=== PATIENT | female | born 1995 | race Hispanic/Latino ===

== ENCOUNTER → 2017-01-13 | Outpatient (CLI) | payer MEDICAID ==
[2017-01-13 14:39] LABS: CHLORIDE,CL 106 mmol/L (98-110); SODIUM,NA 141 mmol/L (136-146)
== END ==
LOC: MW.CHFP 14:04
PROVIDERS: ATTEND Physician Assistant
DX: R10.11 Right upper quadrant pain (principal)
CPT/HCPCS: 36415; 80053; 82150; 83690; 85025

== ENCOUNTER 2019-04-19 04:09 | Inpatient (IN) | payer OTHER ==
[2019-04-19] MEDS ORDERED: Nalbuphine 10 MG/1 ML Vial IVPUSH PRN (08:01)
[2019-04-19] MEDS ORDERED: Butorphanol 1 MG/ML SDV IVPUSH PRN (08:01)
[2019-04-19] MEDS ORDERED: Ondansetron 4 MG/2 ML SDV IVPUSH PRN (08:01)
[2019-04-19] MEDS ORDERED: Misoprostol 200 MCG Tab PO PRN (08:01)
[2019-04-19] MEDS ORDERED: Sodium Chloride 0.9% 10 ML Syringe FLUSH PRN (08:01)
[2019-04-19] MEDS ORDERED: Methylergonovine 0.2 MG/1 ML Amp IM PRN (08:01)
[2019-04-19] MEDS ORDERED: Tranexamic Acid 1,000 MG in Sodium Chloride 0.9% 100 ML IV PRN (08:01)
[2019-04-19] MEDS ORDERED: Lidocaine 1% 50 ML MDV INJECT PRN (08:01)
[2019-04-19] MEDS ORDERED: Water For Irrigation,Sterile 1,000 ML Container IRR PRN (08:01)
[2019-04-19] MEDS ORDERED: Carboprost Tromethamine 250 MCG/1 ML Amp IM PRN (08:01)
[2019-04-19] MEDS ORDERED: Sodium Chloride 0.9% 10 ML SDV IV PRN (08:01)
[2019-04-19] MEDS ORDERED: Sodium Chloride 0.9% 2.5 ML Syringe FLUSH PRN (08:01)
--- NOTE | 2019-04-19 08:09 | PCM.LDHP ---
L&D History of Present Illness - General Date of Service: 04/19/19 Admit Problem/Dx: Patient Status Order with Admit Dx/Problem 04/19/19 04:51 Patient Status [ADT] Routine 04/19/19 08:01 Patient Status [ADT] Routine Admission Diagnosis/Problem Admission Diagnosis/Problem Source of Information: Patient History Limitations: Reports: No Limitations - History of Present Illness Improves with: Reports: None Worsens with: Reports: None Associated Symptoms: Reports: N - Related Data Allergies/Adverse Reactions: Allergies Allergy/AdvReac Type Severity Reaction Status Date / Time No Known Allergies Allergy Verified 04/19/19 07:22 Home Medications: Home Meds . 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 EDC 04/14/2019 Neurological History: Reports: Migraines Psychiatric History: Reports: None Endocrine/Metabolic History: Reports: Diabetes, Gestational Hematologic History: Reports: None Immunologic History: Reports: None Oncologic (Cancer) History: Reports: None Dermatologic History: Reports: None - Infectious Disease History Infectious Disease History: Reports: Chicken Pox - Past Surgical History Musculoskeletal Surgical History: Reports: Other (See Below) Social & Family History - Family History Family Medical History: Noncontributory : Reports: Renal Calculus Neurological: Reports: CVA Endocrine/Metabolic: Reports: Diabetes, Type I, Diabetes, type II - Caffeine Use Caffeine Use: Reports: None H&P Review of Systems - Review of Systems: Review Of Systems: See Below General: Reports: No Symptoms HEENT: Reports: No Symptoms Pulmonary: Reports: No Symptoms Cardiovascular: Reports: No Symptoms Gastrointestinal: Reports: No Symptoms Genitourinary: Reports: No Symptoms Musculoskeletal: Reports: No Symptoms Skin: Reports: No Symptoms Psychiatric: Reports: No Symptoms Neurological: Reports: No Symptoms Hematologic/Lymphatic: Reports: No Symptoms Immunologic: Reports: No Symptoms L&D Exam - Exam Exam: See Below - Vital Signs Weight: 104.326 kg - OB Specific Contraction Intensity: Mild to Moderate Movement: Active Heart Tones: Present Presentation: Vertex - Hsieh Score Hsieh Score Cervix Position: Anterior Hsieh Score Consistency: Soft Hsieh Score Effacement: 51-70% Hsieh Score Dilation: 3-4 cm Hsieh Score Infant's Station: -3 Hsieh Score Total: 8 - Exam General: Alert, Oriented HEENT: PERRLA, Conjunctiva Clear, EACs Clear, EOMI, Hearing Intact, Mucosa Moist & [place], Nares Patent, Normal Nasal Septum, Posterior Pharynx Clear, TMs Clear Neck: Supple, Trachea Midline Lungs: Clear to Auscultation, Normal Respiratory Effort Cardiovascular: Regular Rate, Regular Rhythm GI/Abdominal Exam: Normal Bowel Sounds, Soft, Non-Tender, No Organomegaly, No Distention, No Abnormal Bruit, No Mass, Pelvis Stable Rectal Exam: Normal Exam, Normal Rectal Tone Genitourinary: Normal external exam, Normal bimanual exam, Normal speculum exam Back Exam: Normal Inspection, Full Range of Motion Extremities: Normal Inspection, Normal Range of Motion, Non-Tender, No Pedal Edema, Normal Capillary Refill Skin: Warm, Dry, Intact Neurological: Cranial Nerves Intact, Reflexes Equal Bilateral Psychiatric: Alert, Normal Affect, Normal Mood Problem List Initiated/Reviewed/Updated: Yes Orders Last 24hrs: Active Orders 24 hr Category Date Time Status Patient Status [ADT] Routine ADT 04/19/19 08:01 Active Heart Tones [RC] CONTINUOUS Care 04/19/19 08:01 Active Non Stress Test [RC] PER UNIT ROUTINE Care 04/19/19 04:51 Active Non Stress Test [RC] PER UNIT ROUTINE Care 04/19/19 08:01 Active May Shower [RC] ASDIRECTED Care 04/19/19 08:01 Active Notify Provider [RC] PRN Care 04/19/19 08:01 Active Up ad Addis [RC] ASDIRECTED Care 04/19/19 04:51 Active Vaginal Exam [RC] Click to Edit Care 04/19/19 04:51 Active Vital Signs [RC] PER UNIT ROUTINE Care 04/19/19 04:51 Active CBC W/O DIFF,HEMOGRAM [HEME] Routine Lab 04/19/19 08:01 Ordered TYPE AND SCREEN [BBK] Routine Lab 04/19/19 08:01 Ordered Butorphanol [Stadol] Med 04/19/19 08:01 Active 1 mg IVPUSH Q1H PRN Carboprost Tromethamine [Hemabate DS] Med 04/19/19 08:01 Active 250 mcg IM ASDIRECTED PRN Lactated Ringers [Ringers, Lactated] 1,000 ml Med 04/19/19 08:15 Ordered IV ASDIRECTED Lidocaine 1% [Xylocaine 1%] Med 04/19/19 08:01 Active 50 ml INJECT ONETIME PRN Methylergonovine [Methergine] Med 04/19/19 08:01 Active 0.2 mg IM ASDIRECTED PRN Nalbuphine [Nubain] Med 04/19/19 08:01 Ordered 10 mg IVPUSH Q1H PRN Ondansetron [Zofran] Med 04/19/19 08:01 Ordered 4 mg IVPUSH Q6H PRN Oxytocin/0.9 % Sodium Chloride [Oxytocin 30 Unit/500 ML Med 04/19/19 08:15 Ordered -NS] 30 unit in 500 ml IV TITRATE Sodium Chloride 0.9% [Normal Saline] Med 04/19/19 08:01 Ordered 10 ml IV ASDIRECTED PRN Sodium Chloride 0.9% [Saline Flush] Med 04/19/19 08:01 Ordered 10 ml FLUSH ASDIRECTED PRN Sodium Chloride 0.9% [Saline Flush] Med 04/19/19 08:01 Ordered 2.5 ml FLUSH ASDIRECTED PRN Tranexamic Acid [Cyklokapron] 1,000 mg Med 04/19/19 08:01 Active Sodium Chloride 0.9% [Normal Saline] 100 ml IV ONETIME Water For Irrigation,Sterile [Sterile Water for Med 04/19/19 08:01 Active Irrigation] 1,000 ml IRR ASDIRECTED PRN miSOPROStol [Cytotec] Med 04/19/19 08:01 Active 200 mcg PO ONETIME PRN Scalp Electrode [WOMSER] Per Unit Routine Oth 04/19/19 08:01 Ordered Peripheral IV Insertion Adult [OM.PC] Routine Oth 04/19/19 08:01 Ordered Resuscitation Status Routine Resus Stat 04/19/19 04:51 Ordered Medication Orders Butorphanol Tartrate (Stadol) 1 mg IVPUSH Q1H PRN PRN Reason: Pain Carboprost Tromethamine (Hemabate Ds) 250 mcg IM ASDIRECTED PRN PRN Reason: Post Hemorrhage Tranexamic Acid 1,000 mg/ (Sodium Chloride) 110 mls @ 660 mls/hr IV ONETIME PRN PRN Reason: Bleeding Lactated Ringer's (Ringers, Lactated) 1,000 mls @ 150 mls/hr IV ASDIRECTED [place] Oxytocin/Sodium Chloride (Oxytocin 30 Unit/500 Ml-Ns) 30 unit in 500 mls @ 999 mls/hr IV TITRATE [place] Lidocaine HCl (Xylocaine 1%) 50 ml INJECT ONETIME PRN PRN Reason: Laceration repair Methylergonovine Maleate (Methergine) 0.2 mg IM ASDIRECTED PRN PRN Reason: Post Hemorrhage Misoprostol (Cytotec) 200 mcg PO ONETIME PRN PRN Reason: Post Hemorrhage Nalbuphine HCl (Nubain) 10 mg IVPUSH Q1H PRN PRN Reason: Pain (severe 7-10) Ondansetron HCl (Zofran) 4 mg IVPUSH Q6H PRN PRN Reason: Nausea/Vomiting Sodium Chloride (Saline Flush) 10 ml FLUSH ASDIRECTED PRN PRN Reason: Keep Vein Open Sodium Chloride (Saline Flush) 2.5 ml FLUSH ASDIRECTED PRN PRN Reason: Keep Vein Open Sodium Chloride (Normal Saline) 10 ml IV ASDIRECTED PRN PRN Reason: IV Use Sterile Water (Sterile Water For Irrigation) 1,000 ml IRR ASDIRECTED PRN PRN Reason: delivery Assessment/Plan Comment:: Early labor admit. Expacting .
[2019-04-19] MEDS ORDERED: Lactated Ringers 1,000 ML IV SCH (08:15)
[2019-04-19] MEDS ORDERED: Oxytocin/0.9 % Sodium Chloride 30 UNIT/500 ML BAG IV SCH ×2 (08:15→10:45)
[2019-04-19] MEDS ORDERED: oxyCODONE 5 MG Tab PO PRN (14:06)
[2019-04-19] MEDS ORDERED: Ibuprofen 400 MG Tab PO PRN (14:06)
[2019-04-19] MEDS ORDERED: Benzocaine/Menthol 20%-0.5% Spray 78 GM Cannister TOP PRN (14:06)
[2019-04-19] MEDS ORDERED: Acetaminophen 500 MG Tab PO PRN ×2 (14:06)
[2019-04-19] MEDS ORDERED: Bisacodyl 10 MG Supp RECTAL PRN (14:06)
[2019-04-19] MEDS ORDERED: Lanolin 100% Cream 7 GM Tube TOP PRN (14:06)
[2019-04-19] MEDS ORDERED: Witch Hazel Medicated Pads 40/Jar TOP PRN (14:06)
[2019-04-19] MEDS ORDERED: Ibuprofen 800 MG Tab PO PRN (14:06)
[2019-04-19] MEDS ORDERED: Docusate Sodium 100 MG Cap PO PRN (14:06)
--- NOTE | 2019-04-19 19:45 | OR ---
SURGEON: Torin Davila MD DATE OF PROCEDURE: Ms. Arreguin is 23. She is para 2-0-0-2. She is term. She is followed in our clinic primarily by our nurse maintenance of way supervisor, Dawna Carrillo. She is admitted in active labor today early in the morning. At the time of admission, she was 4 cm, 70% vertex and -3. I did an artificial rupture of the membranes on the patient with a clear fluid. She started having regular contractions without any problem and then she later on required a low dose of Pitocin. The patient became complete, complete and she was able to accomplish normal spontaneous vaginal delivery. Female fetus, score reported to be 8 and 9. The placenta delivered spontaneous, complete, and intact without any problem. There was no need for episiotomy. There was no labial or perineal laceration. I was assisted in this delivery by our family planning resident, Camila Diego. ESTIMATED BLOOD LOSS: 250 to 300 mL. heart rate was category 1 through the entire process of labor. There was no complication in the labor process and the delivery. COLTON / CECILY /[id number]
[2019-04-20 08:36] VITALS: BP 122/78
--- NOTE | 2019-04-20 13:28 | PCM.DCSUM1 ---
Discharge Summary - Hospital Course Diagnosis: Stroke: No - Discharge Data Discharge Date: 04/20/19 Discharge Disposition: Home, Self-Care 01 Condition: Good - Patient Instructions Diet: Usual Diet as Tolerated Activity: As Tolerated Driving: Do Not Drive Showering/Bathing: May Shower Notify Provider of: Fever, Increased Pain, Nausea and/or Vomiting - Discharge Plan Home Medications: Home Meds . [No Known Home Meds] 10/20/15 [History] Referrals: [facility] [Outside] Torin Davila MD [Physician] - 05/31/19 8:30 am - Discharge Summary/Plan Comment DC Time >30 min.: Yes - General Info Date of Service: 04/20/19 Functional Status: Reports: Pain Controlled - Review of Systems General: Reports: No Symptoms HEENT: Reports: No Symptoms Pulmonary: Reports: No Symptoms Cardiovascular: Reports: No Symptoms Gastrointestinal: Reports: No Symptoms Genitourinary: Reports: No Symptoms Musculoskeletal: Reports: No Symptoms Skin: Reports: No Symptoms Neurological: Reports: No Symptoms Psychiatric: Reports: No Symptoms - Patient Data Vitals - Most Recent: Last Vital Signs Temp 36.1 C 04/20/19 08:34 Pulse 85 04/20/19 04:03 Resp 15 04/20/19 08:34 BP 122/78 04/20/19 08:34 Pulse Ox 97 04/20/19 08:34 Weight - Most Recent: 104.326 kg Lab Results - Last 24 hrs: Laboratory Results - last 24 hr 04/20/19 Range/Units 05:02 Hgb 10.1 L (12.0-16.0) g/dL Hct 32.5 L (36.0-46.0) % Med Orders - Current: Current Medications Acetaminophen (Tylenol Extra Strength) 500 mg PO Q4H PRN PRN Reason: Pain Acetaminophen (Tylenol Extra Strength) 1,000 mg PO Q4H PRN PRN Reason: Pain Benzocaine/Menthol (Dermoplast Pain Relief 20%-0.5% [place]) 78 gm TOP ASDIRECTED PRN PRN Reason: Perineal Comfort Measure Bisacodyl (Dulcolax) 10 mg RECTAL ONETIME PRN PRN Reason: Constipation Docusate Sodium (Colace) 100 mg PO BID PRN PRN Reason: Constipation Last Admin: 04/19/19 20:38 Dose: 100 mg Emollient Ointment (Lansinoh Hpa) 0 gm TOP ASDIRECTED PRN PRN Reason: Sore Nipples Ibuprofen (Motrin) 400 mg PO Q4H PRN PRN Reason: Pain Ibuprofen (Motrin) 800 mg PO Q6H PRN PRN Reason: Pain Oxycodone HCl (Oxycodone) 5 mg PO Q2H PRN PRN Reason: Pain Witch Ethel (Tucks) 1 pad TOP ASDIRECTED PRN PRN Reason: comfort care Discontinued Medications Butorphanol Tartrate (Stadol) 1 mg IVPUSH Q1H PRN PRN Reason: Pain Carboprost Tromethamine (Hemabate Ds) 250 mcg IM ASDIRECTED PRN PRN Reason: Post Hemorrhage Tranexamic Acid 1,000 mg/ (Sodium Chloride) 110 mls @ 660 mls/hr IV ONETIME PRN PRN Reason: Bleeding Lactated Ringer's (Ringers, Lactated) 1,000 mls @ 150 mls/hr IV ASDIRECTED CHAPARRITA Last Admin: 04/19/19 13:01 Dose: 150 mls/hr Oxytocin/Sodium Chloride (Oxytocin 30 Unit/500 Ml-Ns) 30 unit in 500 mls @ 999 mls/hr IV TITRATE [facility] Oxytocin/Sodium Chloride (Oxytocin 30 Unit/500 Ml-Ns) 30 unit in 500 mls @ 2 mls/hr IV TITRATE [facility]; Protocol Last Infusion: 04/19/19 14:01 Dose: 999 mls/hr Lidocaine HCl (Xylocaine 1%) 50 ml INJECT ONETIME PRN PRN Reason: Laceration repair Methylergonovine Maleate (Methergine) 0.2 mg IM ASDIRECTED PRN PRN Reason: Post Hemorrhage Misoprostol (Cytotec) 200 mcg PO ONETIME PRN PRN Reason: Post Hemorrhage Nalbuphine HCl (Nubain) 10 mg IVPUSH Q1H PRN PRN Reason: Pain (severe 7-10) Ondansetron HCl (Zofran) 4 mg IVPUSH Q6H PRN PRN Reason: Nausea/Vomiting Sodium Chloride (Saline Flush) 10 ml FLUSH ASDIRECTED PRN PRN Reason: Keep Vein Open Sodium Chloride (Saline Flush) 2.5 ml FLUSH ASDIRECTED PRN PRN Reason: Keep Vein Open Sodium Chloride (Normal Saline) 10 ml IV ASDIRECTED PRN PRN Reason: IV Use Sterile Water (Sterile Water For Irrigation) 1,000 ml IRR ASDIRECTED PRN PRN Reason: delivery - Exam General: Reports: Alert, Oriented HEENT: Reports: Pupils Equal, Pupils Reactive, EOMI, Mucous Membr. Moist/[place] Neck: Reports: Supple Lungs: Reports: Clear to Auscultation, Normal Respiratory Effort Cardiovascular: Reports: Regular Rate, Regular Rhythm GI/Abdominal Exam: Normal Bowel Sounds, Soft, Non-Tender, No Organomegaly, No Distention, No Abnormal Bruit, No Mass, Pelvis Stable (Female) Exam: Normal External Exam, Normal Speculum Exam, Normal Bimanual Exam Rectal (Female) Exam: Normal Exam, Normal Rectal Tone Back Exam: Reports: Normal Inspection, Full Range of Motion Extremities: Normal Inspection, Normal Range of Motion, Non-Tender, No Pedal Edema, Normal Capillary Refill Skin: Reports: Warm, Dry, Intact Wound/Incisions: Reports: Healing Well Neurological: Reports: No New Focal Deficit Psy/Mental Status: Reports: Alert, Normal Affect, Normal Mood
== END 2019-04-20 16:20 | disposition home or self-care (01) | DRG 807 ==
LOC: MW.OBCHECK 04:09 → MW.OB 04:12 → OBSVTOIN 14:07 → MW.OBCHECK 14:11 → MW.OB 19:22
PROVIDERS: ADMIT Obstetrics & Gynecology; ATTEND Obstetrics & Gynecology
PROC: 10E0XZZ Delivery of Products of Conception, External Approach (ICD-10-PCS; principal; 2019-04-19)
PROC: 10907ZC Drainage of Amniotic Fluid, Therapeutic from Products of Conception, Via Natural or Artificial Opening (ICD-10-PCS; 2019-04-19)
DX: O80 Encounter for full-term uncomplicated delivery (principal); Z37.0 Single live birth; Z3A.00 Weeks of gestation of pregnancy not specified
CPT/HCPCS: 36415; 59025; 59409; 85014; 85018; 85027; 86850; 86900; 86901; A9270-GY; J2590; J7120

== ENCOUNTER 2019-05-03 13:38 | Emergency (ER) | payer OTHER ==
[2019-05-03] MEDS ORDERED: Ketorolac 60 MG/2 ML SDV IM ONE (14:38)
--- NOTE | 2019-05-03 14:40 | EDM.PDOC ---
ED HPI GENERAL MEDICAL PROBLEM - General Chief Complaint: Abdominal Pain Stated Complaint: STOMACH PAIN Time Seen by Provider: 05/03/19 14:35 - History of Present Illness INITIAL COMMENTS - FREE TEXT/NARRATIVE: HISTORY AND PHYSICAL: History of present illness: Patient's 23-year-old female presents with a concern of biliary colic this states she's had several episodes of this including with her most recent she was evaluated for this diagnosed accordingly and was referred to general surgery for follow-up after her which she did not pursue. She states this is clearly after eating she denies associated fever chills nausea vomiting at this time. Review of systems: As per history of present illness and below otherwise all systems reviewed and negative. Past medical history: As per history of present illness and as reviewed below otherwise noncontributory. Surgical history: As per history of present illness and as reviewed below otherwise noncontributory. Social history: No reported history of drug or alcohol abuse. Family history: As per history of present illness and as reviewed below otherwise noncontributory. Physical exam: HEENT: Atraumatic, normocephalic, pupils reactive, negative for conjunctival pallor or scleral icterus, mucous membranes moist, throat clear, neck supple, nontender, trachea midline. Lungs: Clear to auscultation, breath sounds equal bilaterally, chest nontender. Heart: S1S2, regular, negative for clicks, rubs, or JVD. Abdomen: Soft, nondistended, tenderness to deep palpation right upper quadrant no rebound no guarding Negative for masses or hepatosplenomegaly. Negative for costovertebral tenderness. Pelvis: Stable nontender. Genitourinary: Deferred. Rectal: Deferred. Extremities: Atraumatic, negative for cords or calf pain. Neurovascular unremarkable. Neuro: Awake, alert, oriented. Cranial nerves II through XII unremarkable. Cerebellum unremarkable. Motor and sensory unremarkable throughout. Exam nonfocal. Diagnostics: CBC CMP hCG [employer]: Toradol 60 mg IM abdominal ultrasound Impression: #1 biliary colic #2 medical noncompliance Definitive disposition and diagnosis as appropriate pending reevaluation and review of above. Upper Abdomen Pain Score (Numeric/FACES): 8 - Related Data Allergies Allergy/AdvReac Type Severity Reaction Status Date / Time No Known Allergies Allergy Verified 05/03/19 14:02 Home Meds: Home Meds . 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 EDC 04/14/2019 Musculoskeletal History: Reports: None Neurological History: Reports: Migraines Psychiatric History: Reports: None Endocrine/Metabolic History: Reports: Diabetes, Gestational Hematologic History: Reports: None Immunologic History: Reports: None Oncologic (Cancer) History: Reports: None Dermatologic History: Reports: None - Infectious Disease History Infectious Disease History: Reports: Chicken Pox - Past Surgical History Head Surgeries/Procedures: Reports: None GI Surgical History: Reports: None Musculoskeletal Surgical History: Reports: Other (See Below) Other Musculoskeletal Surgeries/Procedures:: cyst removal on left leg Social & Family History - Family History Family Medical History: Noncontributory : Reports: Renal Calculus OBGYN: Reports: Neurological: Reports: CVA Endocrine/Metabolic: Reports: Diabetes, Type I, Diabetes, type II - Tobacco Use Smoking Status *Q: Former Smoker Used Tobacco, but Quit: Yes Month/Year Tobacco Last Used: 2017 - Caffeine Use Caffeine Use: Reports: Tea - Recreational Drug Use Recreational Drug Use: No ED ROS GENERAL - Review of Systems Review Of Systems: ROS reveals no pertinent complaints other than HPI. ED EXAM, GENERAL - Physical Exam Exam: See Below (See dictation) Course - Vital Signs Last Recorded V/S: Last Vital Signs Temp 36.2 C 05/03/19 16:10 Pulse 77 05/03/19 16:10 Resp 20 05/03/19 16:10 BP 125/93 H 05/03/19 16:10 Pulse Ox 99 05/03/19 16:10 - Orders/Labs/Meds Labs: Laboratory Tests 05/03/19 05/03/19 05/03/19 Range/Units 14:40 14:50 14:50 WBC 10.09 (4.0-11.0) K/uL RBC 5.17 (4.30-5.90) M/uL Hgb 12.7 (12.0-16.0) g/dL Hct 41.0 (36.0-46.0) % MCV 79.3 L (80.0-98.0) fL MCH 24.6 L (27.0-32.0) pg MCHC 31.0 (31.0-37.0) g/dL RDW Std Deviation 45.0 (28.0-62.0) fl RDW Coeff of Donita 16 H (11.0-15.0) % Plt Count 381 (150-400) K/uL MPV 8.60 (7.40-12.00) fL Neut % (Auto) 60.0 (48.0-80.0) % Lymph % (Auto) 33.2 (16.0-40.0) % [place] % (Auto) 5.4 (0.0-15.0) % Eos % (Auto) 0.9 (0.0-7.0) % Baso % (Auto) 0.5 (0.0-1.5) % Neut # (Auto) 6.1 H (1.4-5.7) K/uL Lymph # (Auto) 3.4 H (0.6-2.4) K/uL [place] # (Auto) 0.5 (0.0-0.8) K/uL Eos # (Auto) 0.1 (0.0-0.7) K/uL Baso # (Auto) 0.1 (0.0-0.1) K/uL Nucleated RBC % 0.0 /100WBC Nucleated RBCs # 0 K/uL Sodium 142 (136-145) mmol/L Potassium 3.8 (3.5-5.1) mmol/L Chloride 104 (98-107) mmol/L Carbon Dioxide 28.3 (21.0-32.0) mmol/L BUN 11 (7.0-18.0) mg/dL Creatinine 0.9 (0.6-1.0) mg/dL Est Cr Clr Drug Dosing 90.23 mL/min Estimated GFR (MDRD) > 60.0 ml/min Glucose 96 (74-106) mg/dL Calcium 8.8 (8.5-10.1) mg/dL Total Bilirubin 0.6 (0.2-1.0) mg/dL AST 45 H (15-37) IU/L ALT 75 H (14-63) IU/L Alkaline Phosphatase 156 H (46-116) U/L Total Protein 8.2 (6.4-8.2) g/dL Albumin 3.4 (3.4-5.0) g/dL Globulin 4.8 H (2.6-4.0) g/dL Albumin/Globulin Ratio 0.7 L (0.9-1.6) HCG, Qual (NEG) Urine Color YELLOW Urine Appearance SLT CLOUDY Urine pH 6.0 (5.0-8.0) Ur Specific [place] 1.010 (1.001-1.035) Urine Protein NEGATIVE (NEGATIVE) mg/dL Urine Glucose (UA) NEGATIVE (NEGATIVE) mg/dL Urine Ketones NEGATIVE (NEGATIVE) mg/dL Urine Occult Blood MODERATE H (NEGATIVE) Urine Nitrite NEGATIVE (NEGATIVE) Urine Bilirubin NEGATIVE (NEGATIVE) Urine Urobilinogen 0.2 (<2.0) EU/dL Ur Leukocyte Esterase NEGATIVE (NEGATIVE) Urine RBC 2-5 (0-2/HPF) Urine WBC 0-2 (0-5/HPF) Ur Epithelial Cells FEW (NONE-FEW) Urine Bacteria RARE (NEGATIVE) Urine Mucus LIGHT (NONE-MOD) 05/03/19 Range/Units 14:50 WBC (4.0-11.0) K/uL RBC (4.30-5.90) M/uL Hgb (12.0-16.0) g/dL Hct (36.0-46.0) % MCV (80.0-98.0) fL MCH (27.0-32.0) pg MCHC (31.0-37.0) g/dL RDW Std Deviation (28.0-62.0) fl RDW Coeff of Donita (11.0-15.0) % Plt Count (150-400) K/uL MPV (7.40-12.00) fL Neut % (Auto) (48.0-80.0) % Lymph % (Auto) (16.0-40.0) % [place] % (Auto) (0.0-15.0) % Eos % (Auto) (0.0-7.0) % Baso % (Auto) (0.0-1.5) % Neut # (Auto) (1.4-5.7) K/uL Lymph # (Auto) (0.6-2.4) K/uL [place] # (Auto) (0.0-0.8) K/uL Eos # (Auto) (0.0-0.7) K/uL Baso # (Auto) (0.0-0.1) K/uL Nucleated RBC % /100WBC Nucleated RBCs # K/uL Sodium (136-145) mmol/L Potassium (3.5-5.1) mmol/L Chloride (98-107) mmol/L Carbon Dioxide (21.0-32.0) mmol/L BUN (7.0-18.0) mg/dL Creatinine (0.6-1.0) mg/dL Est Cr Clr Drug Dosing mL/min Estimated GFR (MDRD) ml/min Glucose (74-106) mg/dL Calcium (8.5-10.1) mg/dL Total Bilirubin (0.2-1.0) mg/dL AST (15-37) IU/L ALT (14-63) IU/L Alkaline Phosphatase (46-116) U/L Total Protein (6.4-8.2) g/dL Albumin (3.4-5.0) g/dL Globulin (2.6-4.0) g/dL Albumin/Globulin Ratio (0.9-1.6) HCG, Qual NEGATIVE (NEG) Urine Color Urine Appearance Urine pH (5.0-8.0) Ur Specific [place] (1.001-1.035) Urine Protein (NEGATIVE) mg/dL Urine Glucose (UA) (NEGATIVE) mg/dL Urine Ketones (NEGATIVE) mg/dL Urine Occult Blood (NEGATIVE) Urine Nitrite (NEGATIVE) Urine Bilirubin (NEGATIVE) Urine Urobilinogen (<2.0) EU/dL Ur Leukocyte Esterase (NEGATIVE) Urine RBC (0-2/HPF) Urine WBC (0-5/HPF) Ur Epithelial Cells (NONE-FEW) Urine Bacteria (NEGATIVE) Urine Mucus (NONE-MOD) Meds: Medications Discontinued Medications Generic Name Dose Route Start Last Admin Trade Name Freq PRN Reason Stop Dose Admin Ketorolac Tromethamine 60 mg 05/03/19 14:38 05/03/19 14:54 Toradol IM 05/03/19 14:39 60 mg ONETIME ONE Administration Departure - Departure Time of Disposition: 07:23 Disposition: Home, Self-Care 01 Condition: Good Clinical Impression: Abdominal pain - Discharge Information Instructions: Biliary Colic, Adult Referrals: PCP,Unknown [Primary Care Provider] - Forms: ED Department Discharge Additional Instructions: The following information is given to patients seen in the emergency department who are being discharged to home. This information is to outline your options for follow-up care. We provide all patients seen in our emergency department with a follow-up referral. The need for follow-up, as well as the timing and circumstances, are variable depending upon the specifics of your emergency department visit. If you don't have a primary care physician on staff, we will provide you with a referral. We always advise you to contact your personal physician following an emergency department visit to inform them of the circumstance of the visit and for follow-up with them and/or the need for any referrals to a consulting specialist. The emergency department will also refer you to a specialist when appropriate. This referral assures that you have the opportunity for follow-up care with a specialist. All of these measure are taken in an effort to provide you with optimal care, which includes your follow-up. Under all circumstances we always encourage you to contact your private physician who remains a resource for coordinating your care. When calling for follow-up care, please make the office aware that this follow-up is from your recent emergency room visit. If for any reason you are refused follow-up, please contact the [facility] at and asked to speak to the emergency department charge nurse. [facility] [address] [place] [id number] [address] 1. Tylenol and/or ibuprofen as needed for pain management. 2. Monitor your diet as this can cause increased pain if you consume large amounts of high fat 3. Follow-up with the general surgeon for further evaluation and management of gallbladder as we discussed. 4. Return to the ED as needed and as discussed.
[2019-05-03 15:21] LABS: CHLORIDE,CL 104 mmol/L (98-107); SODIUM,NA 142 mmol/L (136-145)
--- NOTE | 2019-05-03 15:37 | US ---
EXAMINATION: Right upper quadrant ultrasound HISTORY: Pain COMPARISON: 02/15/2016 TECHNIQUE: Grayscale and color Doppler imaging obtained. FINDINGS: The visualized pancreas is normal. The liver is normal contour and echotexture without a focal hepatic mass. Cholelithiasis is noted without pericholecystic fluid or gallbladder wall thickening. Common bile duct is moderately prominent at 1 cm. Right kidney measures at least 12.6 cm [id number] without evidence of hydronephrosis. IMPRESSION: 1. Cholelithiasis without secondary signs of cholecystitis. 2. Common bile duct is dilated to 1 cm, no filling defect is noted however the inferior duct is not characterized.
[2019-05-03 16:12] VITALS: BP 125/93
== END 2019-05-03 16:10 | disposition home or self-care (01) ==
LOC: MW.ED 13:38
DX: K80.70 Calculus of gallbladder and bile duct without cholecystitis without obstruction (principal); Z91.14 Patient's other noncompliance with medication regimen; Z87.891 Personal history of nicotine dependence
CPT/HCPCS: 36415; 76705; 80053; 81001; 84703; 85025; 96372; 99284; J1885

== ENCOUNTER 2019-05-16 14:20 | Emergency (ER) | payer MEDICAID, OTHER, SELFPAY ==
--- NOTE | 2019-05-16 14:25 | EDM.PDOC ---
ED HPI GENERAL MEDICAL PROBLEM - General Stated Complaint: ABD PAIN Time Seen by Provider: 05/16/19 14:25 Source of Information: Reports: Patient History Limitations: Reports: No Limitations - History of Present Illness INITIAL COMMENTS - FREE TEXT/NARRATIVE: HISTORY AND PHYSICAL: History of present illness: Patient is a 23-year-old female who presents to the emergency room with complaints of gallbladder pain. She previously had been diagnosed with gallstones and does have an appointment tomorrow with the general surgeon, Dr Sanchez. She has been previously taking Hollister for pain management, ran out this morning. She states her pain is not managed and is concerned she "can't make it until tomorrow". She does have mild nausea associated with this. Patient denies any fever, chills, headache, change in vision, syncope or near syncope. Denies any chest pain, back pain, shortness of breath or cough. Denies any vomiting, diarrhea, constipation or dysuria. Has not noted any blood in urine or stool. Patient has been eating and drinking appropriately. Review of systems: As per history of present illness and below otherwise all systems reviewed and negative. Past medical history: As per history of present illness and as reviewed below otherwise noncontributory. Surgical history: As per history of present illness and as reviewed below otherwise noncontributory. Social history: See social history for further information Family history: As per history of present illness and as reviewed below otherwise noncontributory. Physical exam: General: Well developed and well nourished 23-year-old female. Alert and oriented. Nontoxic appearing and in no acute distress. HEENT: Atraumatic, normocephalic, pupils equal and reactive bilaterally, negative for conjunctival pallor or scleral icterus, mucous membranes moist, TMs normal bilaterally, throat clear, neck supple, nontender, trachea midline. No drooling or trismus noted. No meningeal signs. No hot potato voice noted. Lungs: Clear to auscultation, breath sounds equal bilaterally, chest nontender. Heart: S1S2, regular rate and rhythm without overt murmur Abdomen: Soft, nondistended, right upper quadrant tenderness. Negative for masses or hepatosplenomegaly. Negative for costovertebral tenderness. Skin: Intact, warm, dry. No lesions or rashes noted. Extremities: Atraumatic, moves all extremities per self without difficulty or deficits, negative for cords or calf pain. Neurovascular unremarkable. Neuro: Awake, alert, oriented. Cranial nerves II through XII unremarkable. Cerebellum unremarkable. Motor and sensory unremarkable throughout. Exam nonfocal. Notes: Lab work is unremarkable. She does have an appointment tomorrow with the general surgeon. Supportive care measures were reviewed and discussed. Voices understanding and is agreeable to plan of care. Denies any further questions or concerns at this time. Diagnostics: CBC, CMP, lipase Therapeutics: Zofran ODT, Hollister Prescription: Tramadol (#15) Zofran (#10) Impression: Encounter for medication refill History of gallstones Plan: 1. Take the medications as prescribed. 2. Winthrop diet, increase her fluids 3. Keep your appointment with the general surgeon that you have for tomorrow. Return to the ED as needed and as discussed. Definitive disposition and diagnosis as appropriate pending reevaluation and review of above. abdomen Pain Score (Numeric/FACES): 10 - Related Data Allergies Allergy/AdvReac Type Severity Reaction Status Date / Time No Known Allergies Allergy Verified 05/03/19 14:02 Home Meds: Home Meds . 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 EDC 04/14/2019 Musculoskeletal History: Reports: None Neurological History: Reports: Migraines Psychiatric History: Reports: None Endocrine/Metabolic History: Reports: Diabetes, Gestational Hematologic History: Reports: None Immunologic History: Reports: None Oncologic (Cancer) History: Reports: None Dermatologic History: Reports: None - Infectious Disease History Infectious Disease History: Reports: Chicken Pox - Past Surgical History Head Surgeries/Procedures: Reports: None GI Surgical History: Reports: None Musculoskeletal Surgical History: Reports: Other (See Below) Other Musculoskeletal Surgeries/Procedures:: cyst removal on left leg Social & Family History - Family History Family Medical History: Noncontributory : Reports: Renal Calculus OBGYN: Reports: Neurological: Reports: CVA Endocrine/Metabolic: Reports: Diabetes, Type I, Diabetes, type II - Caffeine Use Caffeine Use: Reports: Tea ED ROS GENERAL - Review of Systems Review Of Systems: ROS reveals no pertinent complaints other than HPI. ED EXAM, GI/ABD - Physical Exam Exam: See Below (See dictation) Course - Vital Signs Last Recorded V/S: Last Vital Signs Temp 96.3 F 05/16/19 14:27 Pulse 84 05/16/19 14:27 Resp 20 05/16/19 14:27 BP 146/97 H 05/16/19 14:27 Pulse Ox 99 05/16/19 14:27 - Orders/Labs/Meds Labs: Laboratory Tests 05/16/19 05/16/19 Range/Units 14:41 14:41 WBC 9.92 (4.0-11.0) K/uL RBC 5.60 (4.30-5.90) M/uL Hgb 13.8 (12.0-16.0) g/dL Hct 43.8 (36.0-46.0) % MCV 78.2 L (80.0-98.0) fL MCH 24.6 L (27.0-32.0) pg MCHC 31.5 (31.0-37.0) g/dL RDW Std Deviation 44.1 (28.0-62.0) fl RDW Coeff of Donita 15 (11.0-15.0) % Plt Count 404 H (150-400) K/uL MPV 8.90 (7.40-12.00) fL Neut % (Auto) 52.8 (48.0-80.0) % Lymph % (Auto) 40.4 H (16.0-40.0) % [place] % (Auto) 5.9 (0.0-15.0) % Eos % (Auto) 0.7 (0.0-7.0) % Baso % (Auto) 0.2 (0.0-1.5) % Neut # (Auto) 5.2 (1.4-5.7) K/uL Lymph # (Auto) 4.0 H (0.6-2.4) K/uL Gordon # (Auto) 0.6 (0.0-0.8) K/uL Eos # (Auto) 0.1 (0.0-0.7) K/uL Baso # (Auto) 0.0 (0.0-0.1) K/uL Nucleated RBC % 0.0 /100WBC Nucleated RBCs # 0 K/uL Sodium 140 (136-145) mmol/L Potassium 3.3 L (3.5-5.1) mmol/L Chloride 100 (98-107) mmol/L Carbon Dioxide 26.1 (21.0-32.0) mmol/L BUN 17 (7.0-18.0) mg/dL Creatinine 1.2 H (0.6-1.0) mg/dL Est Cr Clr Drug Dosing 67.67 mL/min Estimated GFR (MDRD) 55.2 ml/min Glucose 101 (74-106) mg/dL Calcium 9.7 (8.5-10.1) mg/dL Total Bilirubin 0.8 (0.2-1.0) mg/dL AST 34 (15-37) IU/L ALT 66 H (14-63) IU/L Alkaline Phosphatase 225 H (46-116) U/L Total Protein 9.1 H (6.4-8.2) g/dL Albumin 4.3 (3.4-5.0) g/dL Globulin 4.8 H (2.6-4.0) g/dL Albumin/Globulin Ratio 0.9 (0.9-1.6) Lipase 147 (73-393) U/L Meds: Medications Discontinued Medications Generic Name Dose Route Start Last Admin Trade Name Freq PRN Reason Stop Dose Admin Hydrocodone Bitart/Acetaminophen 1 tab 05/16/19 14:38 05/16/19 14:46 Hollister 325-5 Mg PO 05/16/19 14:39 1 tab ONETIME ONE Administration Ondansetron HCl 4 mg 05/16/19 14:37 05/16/19 14:46 Zofran Odt PO 05/16/19 14:38 4 mg ONETIME ONE Administration Departure - Departure Time of Disposition: 14:49 Disposition: Home, Self-Care 01 Clinical Impression: Encounter for medication refill, History of gallstones - Discharge Information Instructions: Pain Medicine Instructions, [id number] Referrals: PCP,None [Primary Care Provider] - Additional Instructions: The following information is given to patients seen in the emergency department who are being discharged to home. This information is to outline your options for follow-up care. We provide all patients seen in our emergency department with a follow-up referral. The need for follow-up, as well as the timing and circumstances, are variable depending upon the specifics of your emergency department visit. If you don't have a primary care physician on staff, we will provide you with a referral. We always advise you to contact your personal physician following an emergency department visit to inform them of the circumstance of the visit and for follow-up with them and/or the need for any referrals to a consulting specialist. The emergency department will also refer you to a specialist when appropriate. This referral assures that you have the opportunity for follow-up care with a specialist. All of these measure are taken in an effort to provide you with optimal care, which includes your follow-up. Under all circumstances we always encourage you to contact your private physician who remains a resource for coordinating your care. When calling for follow-up care, please make the office aware that this follow-up is from your recent emergency room visit. If for any reason you are refused follow-up, please contact the [facility] Emergency Department at and asked to speak to the emergency department charge nurse. [facility] - General Surgery Professional Building [address] [place] [address], [address] [place] [address] 1. Take the medications as prescribed. 2. [place] diet, increase her fluids 3. Keep your appointment with the general surgeon that you have for tomorrow. Return to the ED as needed and as discussed.
[2019-05-16] MEDS ORDERED: Ondansetron 4 MG Tab.DIS PO ONE (14:37)
[2019-05-16] MEDS ORDERED: Acetaminophen/HYDROcodone 325-5 MG Tab PO ONE (14:38)
[2019-05-16 15:09] LABS: CARBON DIOXIDE,CO2 26.1 mmol/L (21.0-32.0); POTASSIUM,K 3.3 mmol/L (3.5-5.1)
[2019-05-16 15:30] VITALS: BP 107/89; PULSE 73
== END 2019-05-16 15:25 | disposition home or self-care (01) ==
LOC: MW.ED 14:20
DX: Z76.0 Encounter for issue of repeat prescription (principal); Z87.19 Personal history of other diseases of the digestive system
CPT/HCPCS: 36415; 80053; 83690; 85025; 99282; A9270

== ENCOUNTER 2019-05-17 15:26 | Inpatient (IN) | payer MEDICAID, OTHER, SELFPAY ==
--- NOTE | 2019-05-17 15:59 | US ---
INDICATION: Right upper quadrant pain TECHNIQUE: Ultrasound abdomen limited. Sonographic images of the right upper quadrant were obtained using sherman-scale and color Doppler images. COMPARISON: 02/15/2016 FINDINGS: Liver: Normal in size and echotexture. No masses. No intrahepatic biliary dilatation. Gallbladder: Multiple gallstones. Normal wall thickness. No pericholecystic fluid. Common bile duct: 2 mm. Pancreas: Normal. Right kidney: 12.5 cm. Normal echotexture and cortex. No masses, stones, or hydronephrosis. IMPRESSION: Multiple gallstones in an otherwise normal appearing gallbladder. Normal common bile duct. Dictated by Juan Barriga MD @ 05/17/2019 3:57:27 PM Dictated by: Juan Barriga MD @ 05/17/2019 15:57:31 (Electronically Signed)
[2019-05-17 16:31] LABS: CARBON DIOXIDE,CO2 29.2 mmol/L (21.0-32.0); POTASSIUM,K 3.3 mmol/L (3.5-5.1)
[2019-05-17] MEDS ORDERED: Acetaminophen/HYDROcodone 325-5 MG Tab PO PRN (16:49)
[2019-05-17] MEDS ORDERED: Ondansetron 4 MG/2 ML SDV IVPUSH PRN (16:49)
[2019-05-17] MEDS ORDERED: Acetaminophen 325 MG Tab PO PRN (16:49)
[2019-05-17] MEDS ORDERED: Ondansetron 4 MG Tab.DIS PO PRN (16:49)
[2019-05-17] MEDS ORDERED: Morphine 2 MG/ML Syringe IVPUSH PRN (16:49)
[2019-05-17] MEDS ORDERED: Sodium Chloride 0.9% 1,000 ML IV SCH (17:00)
--- NOTE | 2019-05-17 17:00 | PCM.HP ---
H&P History of Present Illness - General Date of Service: 05/17/19 Admit Problem/Dx: Admission Diagnosis/Problem Admission Diagnosis/Problem Cholelithiasis - History of Present Illness Initial Comments - Free Text/Narative: Patient is a 23-year-old female who was directly admitted from her PCP's office for abdominal pain secondary to gallstones. Patient reports having pain after eating solid foods for the past 2 weeks. She went to the ER approximately 2 weeks ago and had an ultrasound done which revealed gallstones. She was given pain medication and discharged. She has had persistent abdominal pain after eating and now has the pain after eating either solids or liquids. At her PCP's office this morning, a second ultrasound was done which showed multiple gallstones and she was then directly admitted to [facility] for further evaluation. Patient reports pain that initially begins in the epigastric area and then moves to the RUQ and then around her right flank. The pain is also sometimes felt in the LUQ. The pain will last several hours after eating and she also experiences nausea and vomiting. She has had some chills but denies any fevers. Patient has a PMH of gestational diabetes mellitus and recently gave via vaginal delivery 3 weeks ago. Bilateral Abdomen Pain Score (Numeric/FACES): 0 - Related Data Allergies/Adverse Reactions: Allergies Allergy/AdvReac Type Severity Reaction Status Date / Time No Known Allergies Allergy Verified 05/03/19 14:02 Home Medications: Home Meds . 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 EDC 04/14/2019 Musculoskeletal History: Reports: None Neurological History: Reports: Migraines Psychiatric History: Reports: None Endocrine/Metabolic History: Reports: Diabetes, Gestational, Other (See Below) Other Endocrine/Metabolic History: Patient stated she has no more gestational diabetes Hematologic History: Reports: None Immunologic History: Reports: None Oncologic (Cancer) History: Reports: None Dermatologic History: Reports: None - Infectious Disease History Infectious Disease History: Reports: Chicken Pox - Past Surgical History Head Surgeries/Procedures: Reports: None Cardiovascular Surgical History: Reports: None Respiratory Surgical History: Reports: None GI Surgical History: Reports: None Endocrine Surgical History: Reports: None Musculoskeletal Surgical History: Reports: Other (See Below) Other Musculoskeletal Surgeries/Procedures:: cyst removal on left leg Oncologic Surgical History: Reports: None Social & Family History - Family History Family Medical History: Noncontributory : Reports: Renal Calculus OBGYN: Reports: Neurological: Reports: CVA Endocrine/Metabolic: Reports: Diabetes, Type I, Diabetes, type II - Tobacco Use Smoking Status *Q: Former Smoker Years of Tobacco use: 3 Used Tobacco, but Quit: No - Caffeine Use Caffeine Use: Reports: Tea - Recreational Drug Use Recreational Drug Use: No H&P Review of Systems - Review of Systems: Review Of Systems: ROS reveals no pertinent complaints other than HPI. Exam - Exam Exam: See Below - Vital Signs Weight: 203 lb - Exam General: Alert, Oriented, Cooperative (no acute distress) HEENT: Conjunctiva Clear, EOMI, Hearing Intact, Posterior Pharynx Clear, Pupils Equal Neck: Supple, Trachea Midline Lungs: Clear to Auscultation, Normal Respiratory Effort Cardiovascular: Regular Rate, Regular Rhythm GI/Abdominal Exam: Other (bowel sounds present, soft, mild tenderness on deep palpation of RUQ. Barr's sign negative.) Extremities: Normal Inspection, Normal Range of Motion, Non-Tender, No Pedal Edema Peripheral Pulses: 2+: Radial (L), Radial (R), Posterior Tibial (L), Posterior Tibial (R) Skin: Warm, Dry, Intact Neurological: Cranial Nerves Intact, Strength Equal Bilateral, Normal Speech, Normal Tone Neuro Extensive - Mental Status: Alert, Oriented x3, Normal Mood/Affect Psychiatric: Alert, Normal Affect, Normal Mood - Patient Data Lab Results Last 24 hrs: Laboratory Results - last 24 hr 05/17/19 05/17/19 Range/Units 15:53 15:53 WBC 9.55 (4.0-11.0) K/uL RBC 5.43 (4.30-5.90) M/uL Hgb 13.5 (12.0-16.0) g/dL Hct 43.0 (36.0-46.0) % MCV 79.2 L (80.0-98.0) fL MCH 24.9 L (27.0-32.0) pg MCHC 31.4 (31.0-37.0) g/dL RDW Std Deviation 44.7 (28.0-62.0) fl RDW Coeff of Donita 15 (11.0-15.0) % Plt Count 430 H (150-400) K/uL MPV 9.00 (7.40-12.00) fL Neut % (Auto) 56.9 (48.0-80.0) % Lymph % (Auto) 37.0 (16.0-40.0) % [place] % (Auto) 4.8 (0.0-15.0) % Eos % (Auto) 0.9 (0.0-7.0) % Baso % (Auto) 0.4 (0.0-1.5) % Neut # (Auto) 5.4 (1.4-5.7) K/uL Lymph # (Auto) 3.5 H (0.6-2.4) K/uL [place] # (Auto) 0.5 (0.0-0.8) K/uL Eos # (Auto) 0.1 (0.0-0.7) K/uL Baso # (Auto) 0.0 (0.0-0.1) K/uL Nucleated RBC % 0.0 /100WBC Nucleated RBCs # 0 K/uL Sodium 139 (136-145) mmol/L Potassium 3.3 L (3.5-5.1) mmol/L Chloride 100 (98-107) mmol/L Carbon Dioxide 29.2 (21.0-32.0) mmol/L BUN 14 (7.0-18.0) mg/dL Creatinine 1.2 H (0.6-1.0) mg/dL Est Cr Clr Drug Dosing 67.67 mL/min Estimated GFR (MDRD) 55.2 ml/min Glucose 94 (74-106) mg/dL Calcium 9.7 (8.5-10.1) mg/dL Total Bilirubin 0.5 (0.2-1.0) mg/dL AST 25 (15-37) IU/L ALT 60 (14-63) IU/L Alkaline Phosphatase 200 H (46-116) U/L Total Protein 9.2 H (6.4-8.2) g/dL Albumin 4.3 (3.4-5.0) g/dL Globulin 4.9 H (2.6-4.0) g/dL Albumin/Globulin Ratio 0.9 (0.9-1.6) Amylase 45 (25-115) U/L Lipase 83 (73-393) U/L Result Diagrams: 05/17/19 15:53 05/17/19 15:53 Problem List Initiated/Reviewed/Updated: Yes Orders Last 24hrs: Active Orders 24 hr Category Date Time Status Patient Status [ADT] Routine ADT 05/17/19 16:49 Ordered Antiembolic Devices [RC] PER UNIT ROUTINE Care 05/17/19 16:54 Ordered Oxygen Therapy [RC] PRN Care 05/17/19 16:49 Ordered Up ad Addis [RC] ASDIRECTED Care 05/17/19 16:49 Ordered VTE/DVT Education [RC] PER UNIT ROUTINE Care 05/17/19 16:49 Ordered Vital Signs [RC] Q4H Care 05/17/19 16:49 Ordered Regular Diet [DIET] Diet 05/17/19 Dinner Ordered Acetaminophen [Tylenol] Med 05/17/19 16:49 Ordered 650 mg PO Q4H PRN Acetaminophen/HYDROcodone [Cromwell 325-5 MG] Med 05/17/19 16:49 Ordered 1 tab PO Q4H PRN Morphine Med 05/17/19 16:49 Ordered 2 mg IVPUSH Q2H PRN Ondansetron [Zofran ODT] Med 05/17/19 16:49 Ordered 4 mg PO Q4H PRN Ondansetron [Zofran] Med 05/17/19 16:49 Ordered 4 mg IVPUSH Q4H PRN Sodium Chloride 0.9% @ 125 MLS/HR (1000ml) Med 05/17/19 17:00 Ordered Sodium Chloride 0.9% [Normal Saline] 1,000 ml IV ASDIRECTED Sequential Compression Device [OM.PC] Per Unit Routine Oth 05/17/19 16:52 Ordered Resuscitation Status Routine Resus Stat 05/17/19 16:49 Ordered Assessment/Plan Comment:: Assessment: 1. Symptomatic cholelithiasis. 2. Acute kidney injury secondary to dehydration. 3. Hypokalemia. 4. Past medical history of gestational diabetes mellitus. Plan: 1. For symptomatic cholelithiasis, ultrasound done today showed multiple gallstones, no wall thickening and no pericholecystic fluid. General surgeon Dr. Young consulted and recommended: ice chips and medications are okay for tonight but keep patient NPO after midnight, IV fluids, will plan for cholecystectomy tomorrow. 2. For acute kidney injury, will hydrate patient with IV NS + 40 mEq KCl @ 125 cc/hr. Will monitor with next set of labs. 3. For hypokalemia, will replete with IV NS + 40 mEq KCl and recheck with AM labs.
[2019-05-17] MEDS ORDERED: Sodium Chloride 0.9% with KCl 1,000 ML IV ONE (17:10)
[2019-05-17] MEDS ORDERED: Sodium Chloride 0.9% with KCl 1,000 ML IV SCH (17:15)
--- NOTE | 2019-05-17 17:41 | PCM.CONS ---
H&P History of Present Illness - General Date of Service: 05/17/19 Admit Problem/Dx: Admission Diagnosis/Problem Admission Diagnosis/Problem Cholelithiasis Source of Information: Patient History Limitations: Reports: No Limitations - History of Present Illness Initial Comments - Free Text/Narative: Patient is a 23 year old female who presents with severe post prandial pain. She is 3 weeks post- from a normal vaginal delivery. She has a history of gestational diabetes. She was seen in the ER twice before for the same issue. The pain starts in the epigastric area and radiates to the RUQ and to the back. It is associated with nausea and vomiting. She is no longer tolerating liquids or solids. She presented to her PCP office today. She has an elevated alk phos. Her last US showed a gallbladder full of stones but no evidence of CBD dilation. She is comfortable as long as she doesnt take anything by mouth. She denies fevers but complains of chills. Bilateral Abdomen Pain Score (Numeric/FACES): 0 - Related Data Allergies/Adverse Reactions: Allergies Allergy/AdvReac Type Severity Reaction Status Date / Time No Known Allergies Allergy Verified 05/03/19 14:02 Home Medications: Home Meds . 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 EDC 04/14/2019 Musculoskeletal History: Reports: None Neurological History: Reports: Migraines Psychiatric History: Reports: None Endocrine/Metabolic History: Reports: Diabetes, Gestational, Other (See Below) Other Endocrine/Metabolic History: Patient stated she has no more gestational diabetes Hematologic History: Reports: None Immunologic History: Reports: None Oncologic (Cancer) History: Reports: None Dermatologic History: Reports: None - Infectious Disease History Infectious Disease History: Reports: Chicken Pox - Past Surgical History Head Surgeries/Procedures: Reports: None Cardiovascular Surgical History: Reports: None Respiratory Surgical History: Reports: None GI Surgical History: Reports: None Endocrine Surgical History: Reports: None Musculoskeletal Surgical History: Reports: Other (See Below) Other Musculoskeletal Surgeries/Procedures:: cyst removal on left leg Oncologic Surgical History: Reports: None Social & Family History - Family History Family Medical History: Noncontributory : Reports: Renal Calculus OBGYN: Reports: Neurological: Reports: CVA Endocrine/Metabolic: Reports: Diabetes, Type I, Diabetes, type II - Tobacco Use Smoking Status *Q: Former Smoker Years of Tobacco use: 3 Used Tobacco, but Quit: No - Caffeine Use Caffeine Use: Reports: Tea - Recreational Drug Use Recreational Drug Use: No H&P Review of Systems - Review of Systems: Review Of Systems: ROS reveals no pertinent complaints other than HPI. Exam - Exam Exam: See Below - Vital Signs Vital Signs: Last Vital Signs Temp 36.0 C 05/17/19 16:13 Pulse 81 05/17/19 16:13 Resp 18 05/17/19 16:13 BP 136/91 H 05/17/19 16:13 Pulse Ox 100 05/17/19 16:13 Weight: 92.079 kg - Exam General: Alert, Oriented HEENT: Conjunctiva Clear, Mucosa Moist & [place], Posterior Pharynx Clear Neck: Supple, Trachea Midline Lungs: Clear to Auscultation, Normal Respiratory Effort Cardiovascular: Regular Rate, Regular Rhythm GI/Abdominal Exam: Soft, Non-Tender, No Distention, No Mass Extremities: Normal Inspection - Patient Data Lab Results Last 24 hrs: Laboratory Results - last 24 hr 05/17/19 05/17/19 05/17/19 Range/Units 15:53 15:53 16:55 WBC 9.55 (4.0-11.0) K/uL RBC 5.43 (4.30-5.90) M/uL Hgb 13.5 (12.0-16.0) g/dL Hct 43.0 (36.0-46.0) % MCV 79.2 L (80.0-98.0) fL MCH 24.9 L (27.0-32.0) pg MCHC 31.4 (31.0-37.0) g/dL RDW Std Deviation 44.7 (28.0-62.0) fl RDW Coeff of Donita 15 (11.0-15.0) % Plt Count 430 H (150-400) K/uL MPV 9.00 (7.40-12.00) fL Neut % (Auto) 56.9 (48.0-80.0) % Lymph % (Auto) 37.0 (16.0-40.0) % [place] % (Auto) 4.8 (0.0-15.0) % Eos % (Auto) 0.9 (0.0-7.0) % Baso % (Auto) 0.4 (0.0-1.5) % Neut # (Auto) 5.4 (1.4-5.7) K/uL Lymph # (Auto) 3.5 H (0.6-2.4) K/uL [place] # (Auto) 0.5 (0.0-0.8) K/uL Eos # (Auto) 0.1 (0.0-0.7) K/uL Baso # (Auto) 0.0 (0.0-0.1) K/uL Nucleated RBC % 0.0 /100WBC Nucleated RBCs # 0 K/uL INR 1.12 Sodium 139 (136-145) mmol/L Potassium 3.3 L (3.5-5.1) mmol/L Chloride 100 (98-107) mmol/L Carbon Dioxide 29.2 (21.0-32.0) mmol/L BUN 14 (7.0-18.0) mg/dL Creatinine 1.2 H (0.6-1.0) mg/dL Est Cr Clr Drug Dosing 67.67 mL/min Estimated GFR (MDRD) 55.2 ml/min Glucose 94 (74-106) mg/dL Calcium 9.7 (8.5-10.1) mg/dL Total Bilirubin 0.5 (0.2-1.0) mg/dL AST 25 (15-37) IU/L ALT 60 (14-63) IU/L Alkaline Phosphatase 200 H (46-116) U/L Total Protein 9.2 H (6.4-8.2) g/dL Albumin 4.3 (3.4-5.0) g/dL Globulin 4.9 H (2.6-4.0) g/dL Albumin/Globulin Ratio 0.9 (0.9-1.6) Amylase 45 (25-115) U/L Lipase 83 (73-393) U/L Result Diagrams: 05/17/19 15:53 05/17/19 15:53 Consult PN Assessment/Plan Procedures: Procedures ASSAY OF AMYLASE (01/13/17) ASSAY OF LIPASE (01/13/17) BLOOD TYPING SEROLOGIC ABO (12/11/18) BLOOD TYPING SEROLOGIC RH(D) (12/11/18) CHORIONIC GONADOTROPIN ASSAY (05/03/19) CHYLMD TRACH DNA AMP PROBE (01/21/19) COMPLETE CBC AUTOMATED (01/21/19) COMPLETE CBC W/AUTO DIFF WBC (05/03/19) COMPREHEN METABOLIC PANEL (05/03/19) CULTURE OTHR SPECIMN AEROBIC (12/12/15) CULTURE SCREEN ONLY (03/23/19) DRUG TEST PRSMV DIR OPT OBS (12/11/18) ECHO EXAM OF ABDOMEN (05/03/19) ELECTROCARDIOGRAM TRACING (10/20/15) EMERGENCY DEPT VISIT (05/03/19) EMERGENCY DEPT VISIT (10/07/18) EMERGENCY DEPT VISIT (10/20/15) NON-STRESS TEST (04/05/19) GLUCOSE TEST (01/21/19) GLUCOSE TOLERANCE TEST (GTT) (02/24/19) HEPATITIS B SURFACE AG IA (12/11/18) HEPATITIS C AB TEST (12/11/18) HIV-1 AG W/HIV-1 & HIV-2 AB (12/11/18) N.GONORRHOEAE DNA AMP PROB (01/21/19) OB US >/= 14 WKS SNGL FETUS (12/18/18) RBC ANTIBODY SCREEN (01/21/19) ROUTINE VENIPUNCTURE (05/03/19) RUBELLA ANTIBODY (12/11/18) SYPHILIS TEST NON-TREP QUAL (12/11/18) THER/PROPH/DIAG INJ SC/IM (05/03/19) TRANSVAGINAL US OBSTETRIC (12/18/18) URINALYSIS AUTO W/O SCOPE (12/11/18) URINALYSIS AUTO W/SCOPE (05/03/19) URINE CULTURE/COLONY COUNT (12/11/18) URINE TEST (10/20/15) (1) Abdominal pain SNOMED Code(s): 10084537 Code(s): R10.9 - UNSPECIFIED ABDOMINAL PAIN Current Visit: No (2) History of gallstones SNOMED Code(s): 581243022 Code(s): Z87.19 - PERSONAL HISTORY OF OTHER DISEASES OF THE DIGESTIVE SYSTEM Current Visit: No Problem List Initiated/Reviewed/Updated: Yes Plan: The patient likely has symptomatic cholelithiasis and possible chronic cholecystitis. I explained the pathophysiology of biliary disease. I explained the treatment which involves a cholecystectomy. I explained the laparoscopic approach as well as open. Should I be unable to proceed laparoscopically I will convert to open. I explained the expected perioperative course with each and the risks including bleeding infection or damage to surrounding structures. She verbalized understanding and wishes to proceed. Keep NPO tonight other that ice chips or sips with meds. Will order pre-operative ancef. Continue fluid resuscitation overnight.
[2019-05-18] MEDS: Sodium Chloride 0.9% 1,000 ML IV SCH ×3 (01:38→17:39)
[2019-05-18 06:03] LABS: BLOOD UREA NITROGEN,BUN 13 mg/dL (7.0-18.0); CARBON DIOXIDE,CO2 27.8 mmol/L (21.0-32.0); CHLORIDE,CL 107 mmol/L (98-107); GLUCOSE RANDOM 86 mg/dL (74-106); POTASSIUM,K 3.8 mmol/L (3.5-5.1); SODIUM,NA 143 mmol/L (136-145)
--- NOTE | 2019-05-18 08:28 | PCM.PN ---
- General Info Date of Service: 05/18/19 Subjective Update: 23-year-old female admitted for symptomatic cholelithiasis. Has been NPO since midnight and on IV fluids. Dr. Young consulted and will take patient for cholecystectomy today. Patient reports no abdominal pain, fevers, chills, nausea or vomiting this morning. - Patient Data Vitals - Most Recent: Last Vital Signs Temp 97.0 F 05/18/19 07:58 Pulse 55 L 05/18/19 07:58 Resp 16 05/18/19 07:58 BP 107/78 05/18/19 07:58 Pulse Ox 99 05/18/19 07:58 Weight - Most Recent: 203 lb I&O - Last 24 Hours: Intake & Output 05/17/19 05/18/19 05/18/19 22:59 06:59 14:59 Intake Total 1254 Output Total 0 Balance 1254 Lab Results Last 24 Hours: Laboratory Results - last 24 hr 05/17/19 05/17/19 05/17/19 Range/Units 15:53 15:53 16:55 WBC 9.55 (4.0-11.0) K/uL RBC 5.43 (4.30-5.90) M/uL Hgb 13.5 (12.0-16.0) g/dL Hct 43.0 (36.0-46.0) % MCV 79.2 L (80.0-98.0) fL MCH 24.9 L (27.0-32.0) pg MCHC 31.4 (31.0-37.0) g/dL RDW Std Deviation 44.7 (28.0-62.0) fl RDW Coeff of Donita 15 (11.0-15.0) % Plt Count 430 H (150-400) K/uL MPV 9.00 (7.40-12.00) fL Neut % (Auto) 56.9 (48.0-80.0) % Lymph % (Auto) 37.0 (16.0-40.0) % [place] % (Auto) 4.8 (0.0-15.0) % Eos % (Auto) 0.9 (0.0-7.0) % Baso % (Auto) 0.4 (0.0-1.5) % Neut # (Auto) 5.4 (1.4-5.7) K/uL Lymph # (Auto) 3.5 H (0.6-2.4) K/uL [place] # (Auto) 0.5 (0.0-0.8) K/uL Eos # (Auto) 0.1 (0.0-0.7) K/uL Baso # (Auto) 0.0 (0.0-0.1) K/uL Nucleated RBC % 0.0 /100WBC Nucleated RBCs # 0 K/uL INR 1.12 Sodium 139 (136-145) mmol/L Potassium 3.3 L (3.5-5.1) mmol/L Chloride 100 (98-107) mmol/L Carbon Dioxide 29.2 (21.0-32.0) mmol/L BUN 14 (7.0-18.0) mg/dL Creatinine 1.2 H (0.6-1.0) mg/dL Est Cr Clr Drug Dosing 67.67 mL/min Estimated GFR (MDRD) 55.2 ml/min Glucose 94 (74-106) mg/dL Calcium 9.7 (8.5-10.1) mg/dL Total Bilirubin 0.5 (0.2-1.0) mg/dL AST 25 (15-37) IU/L ALT 60 (14-63) IU/L Alkaline Phosphatase 200 H (46-116) U/L Total Protein 9.2 H (6.4-8.2) g/dL Albumin 4.3 (3.4-5.0) g/dL Globulin 4.9 H (2.6-4.0) g/dL Albumin/Globulin Ratio 0.9 (0.9-1.6) Amylase 45 (25-115) U/L Lipase 83 (73-393) U/L 05/18/19 05/18/19 Range/Units 05:23 05:23 WBC 7.05 (4.0-11.0) K/uL RBC 4.76 (4.30-5.90) M/uL Hgb 11.5 L (12.0-16.0) g/dL Hct 38.4 (36.0-46.0) % MCV 80.7 (80.0-98.0) fL MCH 24.2 L (27.0-32.0) pg MCHC 29.9 L (31.0-37.0) g/dL RDW Std Deviation 45.5 (28.0-62.0) fl RDW Coeff of Donita 16 H (11.0-15.0) % Plt Count 331 (150-400) K/uL MPV 9.20 (7.40-12.00) fL Neut % (Auto) 44.1 L (48.0-80.0) % Lymph % (Auto) 45.0 H (16.0-40.0) % [place] % (Auto) 8.7 (0.0-15.0) % Eos % (Auto) 1.3 (0.0-7.0) % Baso % (Auto) 0.9 (0.0-1.5) % Neut # (Auto) 3.1 (1.4-5.7) K/uL Lymph # (Auto) 3.2 H (0.6-2.4) K/uL [place] # (Auto) 0.6 (0.0-0.8) K/uL Eos # (Auto) 0.1 (0.0-0.7) K/uL Baso # (Auto) 0.1 (0.0-0.1) K/uL Nucleated RBC % 0.0 /100WBC Nucleated RBCs # 0 K/uL INR Sodium 143 (136-145) mmol/L Potassium 3.8 (3.5-5.1) mmol/L Chloride 107 (98-107) mmol/L Carbon Dioxide 27.8 (21.0-32.0) mmol/L BUN 13 (7.0-18.0) mg/dL Creatinine 1.1 H (0.6-1.0) mg/dL Est Cr Clr Drug Dosing 73.83 mL/min Estimated GFR (MDRD) > 60.0 ml/min Glucose 86 (74-106) mg/dL Calcium 9.2 (8.5-10.1) mg/dL Total Bilirubin 0.4 (0.2-1.0) mg/dL AST 20 (15-37) IU/L ALT 49 (14-63) IU/L Alkaline Phosphatase 152 H (46-116) U/L Total Protein 7.4 (6.4-8.2) g/dL Albumin 3.4 (3.4-5.0) g/dL Globulin 4.0 (2.6-4.0) g/dL Albumin/Globulin Ratio 0.9 (0.9-1.6) Amylase (25-115) U/L Lipase (73-393) U/L Med Orders - Current: Current Medications Acetaminophen (Tylenol) 650 mg PO Q4H PRN PRN Reason: Pain (Mild 1-3)/fever Hydrocodone Bitart/Acetaminophen ([place] 325-5 Mg) 1 tab PO Q4H PRN PRN Reason: Pain (moderate 4-6) Sodium Chloride (Normal Saline) 1,000 mls @ 125 mls/hr IV Q8H [facility] Last Admin: 05/18/19 01:38 Dose: 125 mls/hr Morphine Sulfate (Morphine) 2 mg IVPUSH Q2H PRN PRN Reason: Pain (severe 7-10) Stop: 05/18/19 16:54 Ondansetron HCl (Zofran Odt) 4 mg PO Q4H PRN PRN Reason: nausea, able to take PO Ondansetron HCl (Zofran) 4 mg IVPUSH Q4H PRN PRN Reason: Nausea Discontinued Medications Sodium Chloride (Normal Saline) 1,000 mls @ 125 mls/hr IV Q8H [facility] Last Admin: 05/17/19 18:05 Dose: Not Given Potassium Chloride/Sodium Chloride (Normal Saline With 40 Meq Kcl) 1,000 mls @ 125 mls/hr IV CONTINUOUS [facility] Potassium Chloride/Sodium Chloride (Normal Saline With 40 Meq Kcl) 1,000 mls @ 125 mls/hr IV ONETIME ONE Stop: 05/18/19 01:09 Last Admin: 05/17/19 17:16 Dose: 125 mls/hr - Exam General: Alert, Oriented, Cooperative, No Acute Distress Lungs: Clear to Auscultation, Normal Respiratory Effort Cardiovascular: Regular Rate, Regular Rhythm GI/Abdominal Exam: Normal Bowel Sounds, Soft, Non-Tender, No Distention Extremities: No Pedal Edema - Problem List Review Problem List Initiated/Reviewed/Updated: Yes - My Orders Last 24 Hours: My Active Orders 05/17/19 17:08 Consult to Physician [CONS] Routine 05/17/19 17:09 Notify Provider Consults [RC] ASDIRECTED - Plan Plan:: Assessment: 1. Symptomatic cholelithiasis. 2. Acute kidney injury secondary to dehydration, improving. 3. Hypokalemia, resolved. 4. Past medical history of gestational diabetes mellitus. Plan: 1. For symptomatic cholelithiasis, as per Dr. Young, patient will be going for cholecystectomy today. Patient has been NPO since midnight and remains on IV fluids. 2. For acute kidney injury, will continue IV fluids. Will monitor with next set of labs.
[2019-05-18] MEDS ORDERED: Scopolamine 1.5 MG Transdermal Patch TRDERM PRN (10:30)
--- NOTE | 2019-05-18 10:30 | PCM.PREANE ---
Preanesthetic Assessment - Anesthesia/Transfusion/Family Hx Anesthesia History: Prior Anesthesia Without Reaction Family History of Anesthesia Reaction: No Transfusion History: No Prior Transfusion(s) Intubation History: Unknown - Review of Systems General: No Symptoms Pulmonary: No Symptoms Cardiovascular: No Symptoms Gastrointestinal: Abdominal Pain Neurological: No Symptoms Other: Reports: None - Physical Assessment O2 Sat by Pulse Oximetry: 99 Respiratory Rate: 16 Vital Signs: Last Vital Signs Temp 36.1 C 05/18/19 07:58 Pulse 55 L 05/18/19 07:58 Resp 16 05/18/19 07:58 BP 107/78 05/18/19 07:58 Pulse Ox 99 05/18/19 07:58 Height: 5 ft 6 in Weight: 92.079 kg ASA Class: 2 Mental Status: Alert & Oriented x3 Airway Class: Mallampati = 2 Dentition: Reports: Normal Dentition Thyro-Mental Finger Breadths: 3 Mouth Opening Finger Breadths: 3 ROM/Head Extension: Full Lungs: Clear to Auscultation, Normal Respiratory Effort Cardiovascular: Regular Rate, Regular Rhythm - Lab Values: Laboratory Last Values WBC 7.05 K/uL (4.0-11.0) 05/18/19 05:23 RBC 4.76 M/uL (4.30-5.90) 05/18/19 05:23 Hgb 11.5 g/dL (12.0-16.0) L 05/18/19 05:23 Hct 38.4 % (36.0-46.0) 05/18/19 05:23 MCV 80.7 fL (80.0-98.0) 05/18/19 05:23 MCH 24.2 pg (27.0-32.0) L 05/18/19 05:23 MCHC 29.9 g/dL (31.0-37.0) L 05/18/19 05:23 RDW Std Deviation 45.5 fl (28.0-62.0) 05/18/19 05:23 RDW Coeff of Donita 16 % (11.0-15.0) H 05/18/19 05:23 Plt Count 331 K/uL (150-400) 05/18/19 05:23 MPV 9.20 fL (7.40-12.00) 05/18/19 05:23 Neut % (Auto) 44.1 % (48.0-80.0) L 05/18/19 05:23 Lymph % (Auto) 45.0 % (16.0-40.0) H 05/18/19 05:23 [place] % (Auto) 8.7 % (0.0-15.0) 05/18/19 05:23 Eos % (Auto) 1.3 % (0.0-7.0) 05/18/19 05:23 Baso % (Auto) 0.9 % (0.0-1.5) 05/18/19 05:23 Neut # (Auto) 3.1 K/uL (1.4-5.7) 05/18/19 05:23 Lymph # (Auto) 3.2 K/uL (0.6-2.4) H 05/18/19 05:23 [place] # (Auto) 0.6 K/uL (0.0-0.8) 05/18/19 05:23 Eos # (Auto) 0.1 K/uL (0.0-0.7) 05/18/19 05:23 Baso # (Auto) 0.1 K/uL (0.0-0.1) 05/18/19 05:23 Nucleated RBC % 0.0 /100WBC 05/18/19 05:23 Nucleated RBCs # 0 K/uL 05/18/19 05:23 INR 1.12 05/17/19 16:55 Sodium 143 mmol/L (136-145) 05/18/19 05:23 Potassium 3.8 mmol/L (3.5-5.1) 05/18/19 05:23 Chloride 107 mmol/L (98-107) 05/18/19 05:23 Carbon Dioxide 27.8 mmol/L (21.0-32.0) 05/18/19 05:23 BUN 13 mg/dL (7.0-18.0) 05/18/19 05:23 Creatinine 1.1 mg/dL (0.6-1.0) H 05/18/19 05:23 Est Cr Clr Drug Dosing 73.83 mL/min 05/18/19 05:23 Estimated GFR (MDRD) > 60.0 ml/min 05/18/19 05:23 Glucose 86 mg/dL (74-106) 05/18/19 05:23 Calcium 9.2 mg/dL (8.5-10.1) 05/18/19 05:23 Total Bilirubin 0.4 mg/dL (0.2-1.0) 05/18/19 05:23 AST 20 IU/L (15-37) 05/18/19 05:23 ALT 49 IU/L (14-63) 05/18/19 05:23 Alkaline Phosphatase 152 U/L (46-116) H 05/18/19 05:23 Total Protein 7.4 g/dL (6.4-8.2) 05/18/19 05:23 Albumin 3.4 g/dL (3.4-5.0) 05/18/19 05:23 Globulin 4.0 g/dL (2.6-4.0) 05/18/19 05:23 Albumin/Globulin Ratio 0.9 (0.9-1.6) 05/18/19 05:23 Amylase 45 U/L (25-115) 05/17/19 15:53 Lipase 83 U/L (73-393) 05/17/19 15:53 - Allergies Allergies/Adverse Reactions: Allergies Allergy/AdvReac Type Severity Reaction Status Date / Time No Known Allergies Allergy Verified 05/17/19 18:41 - Blood Blood Available: No - Anesthesia Plan Pre-Op Medication Ordered: None - Acknowledgements Anesthesia Type Planned: General Anesthesia Pt an Appropriate Candidate for the Planned Anesthesia: Yes Alternatives and Risks of Anesthesia Discussed w Pt/Guardian: Yes Pt/Guardian Understands and Agrees with Anesthesia Plan: Yes PreAnesthesia Questionnaire - Past Health History Medical/Surgical History: Denies Medical/Surgical History HEENT History: Reports: None Cardiovascular History: Reports: None Respiratory History: Reports: None Gastrointestinal History: Reports: Other (See Below) Other Gastrointestinal History: patient states "I have gall bladder pains and will probably have it removed after " Genitourinary History: Reports: None 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 EDC 04/14/2019 Musculoskeletal History: Reports: None Neurological History: Reports: Migraines Psychiatric History: Reports: None Endocrine/Metabolic History: Reports: Diabetes, Gestational, Obesity/BMI 30+, Other (See Below) Other Endocrine/Metabolic History: Patient stated she has no more gestational diabetes Hematologic History: Reports: None Immunologic History: Reports: None Oncologic (Cancer) History: Reports: None Dermatologic History: Reports: None - Infectious Disease History Infectious Disease History: Reports: Chicken Pox - Past Surgical History Head Surgeries/Procedures: Reports: None Cardiovascular Surgical History: Reports: None Respiratory Surgical History: Reports: None GI Surgical History: Reports: None Endocrine Surgical History: Reports: None Musculoskeletal Surgical History: Reports: Other (See Below) Other Musculoskeletal Surgeries/Procedures:: cyst removal on left leg (calf) Oncologic Surgical History: Reports: None - SUBSTANCE USE Smoking Status *Q: Former Smoker Tobacco Use Within Last Twelve Months: Cigarettes Recreational Drug Use History: No - HOME MEDS Home Medications: Home Meds . [No Known Home Meds] 10/20/15 [History] - CURRENT (IN HOUSE) MEDS Current Meds: Current Medications Acetaminophen (Tylenol) 650 mg PO Q4H PRN PRN Reason: Pain (Mild 1-3)/fever Hydrocodone Bitart/Acetaminophen ([place] 325-5 Mg) 1 tab PO Q4H PRN PRN Reason: Pain (moderate 4-6) Sodium Chloride (Normal Saline) 1,000 mls @ 125 mls/hr IV Q8H [facility] Last Admin: 05/18/19 09:49 Dose: 125 mls/hr Morphine Sulfate (Morphine) 2 mg IVPUSH Q2H PRN PRN Reason: Pain (severe 7-10) Stop: 05/18/19 16:54 Ondansetron HCl (Zofran Odt) 4 mg PO Q4H PRN PRN Reason: nausea, able to take PO Ondansetron HCl (Zofran) 4 mg IVPUSH Q4H PRN PRN Reason: Nausea Discontinued Medications Sodium Chloride (Normal Saline) 1,000 mls @ 125 mls/hr IV Q8H [facility] Last Admin: 05/17/19 18:05 Dose: Not Given Potassium Chloride/Sodium Chloride (Normal Saline With 40 Meq Kcl) 1,000 mls @ 125 mls/hr IV CONTINUOUS [facility] Potassium Chloride/Sodium Chloride (Normal Saline With 40 Meq Kcl) 1,000 mls @ 125 mls/hr IV ONETIME ONE Stop: 05/18/19 01:09 Last Admin: 05/17/19 17:16 Dose: 125 mls/hr
[2019-05-18] MEDS ORDERED: Ketorolac 30 MG/ML SDV ONE (11:57)
[2019-05-18] MEDS ORDERED: Glycopyrrolate 0.2 MG/ML SDV ONE (11:57)
[2019-05-18] MEDS ORDERED: Ondansetron 4 MG/2 ML SDV ONE (11:57)
[2019-05-18] MEDS ORDERED: Lidocaine 2% 5 ML SDV ONE (11:57)
[2019-05-18] MEDS ORDERED: Neostigmine Methylsulfate 1 MG/ML 5 ML Syringe ONE (11:57)
[2019-05-18] MEDS ORDERED: Rocuronium 100 MG/10 ML Syringe ONE (11:57)
[2019-05-18] MEDS ORDERED: Propofol 200 MG/20 ML SDV ONE (11:59)
[2019-05-18] MEDS ORDERED: fentaNYL 250 MCG/5 ML SDV ONE ×2 (11:59→13:35)
[2019-05-18] MEDS ORDERED: Midazolam 1 MG/ML 2 ML SDV ONE (12:00)
[2019-05-18] MEDS ORDERED: Bupivacaine 0.5% 30 ML SDV ONE ×2 (12:32→14:32)
[2019-05-18] MEDS ORDERED: ceFAZolin 1 GM Vial ONE (13:13)
[2019-05-18] MEDS ORDERED: Sodium Chloride 0.9% 20 ML ONE (13:13)
[2019-05-18] MEDS ORDERED: Labetalol 100 MG/20 ML MDV ONE (14:08)
[2019-05-18] MEDS ORDERED: HYDROmorphone 2 MG/ML Syringe ONE (14:30)
[2019-05-18] MEDS ORDERED: Sugammadex Sodium 200 MG/2 ML VIAL ONE (15:17)
[2019-05-18] MEDS ORDERED: fentaNYL 100 MCG/2 ML SDV IVPUSH PRN (15:25)
[2019-05-18] MEDS ORDERED: Morphine 2 MG/ML Syringe IVPUSH PRN (16:06)
--- NOTE | 2019-05-18 16:13 | PCM.OPNOTE ---
- General Post-Op/Procedure Note Date of Surgery/Procedure: 05/18/19 Operative Procedure(s): Laparoscopic converted to open cholecystectomy Findings: Enlarged gallbladder containing gallstones as well as a large amount of inflammation around the proximal gallbladder. Pre Op Diagnosis: Symptomatic cholelithiasis Post-Op Diagnosis: Acute cholecystitis Anesthesia Technique: General ET Tube Primary Surgeon: Lizbeth Young Fluid Replacement, Intraop: 1,800 Output, Urine Amount: 200 EBL in mLs: 350 Condition: Good Free Text/Narrative:: Intake & Output 05/18/19 05/18/19 05/18/19 06:59 14:59 22:59 Intake Total 1254 Output Total 0 Balance 1254
[2019-05-18] MEDS ORDERED: Lactated Ringers 1,000 ML IV SCH (16:15)
[2019-05-18] MEDS: HYDROmorphone 2 MG/ML Syringe IVPUSH ONE ×2 (16:18→16:28)
--- NOTE | 2019-05-18 16:49 | PCM.POSTAN ---
POST ANESTHESIA ASSESSMENT - MENTAL STATUS Mental Status: Alert Free Text/Narrative:: Doing well. - VITAL SIGNS Pulse Rate: 68 SaO2: 100 (RA) Resp Rate: 16 Blood Pressure: 99/71 Temperature: 36.4 C - RESPIRATORY Respiratory Status: Respiratory Rate WNL - CARDIOVASCULAR CV Status: Pulse Rate WNL - GASTROINTESTINAL GI Status: No Symptoms - PAIN Pain Score: 3 (On Q inplace. Doing well.) - POST OP HYDRATION Hydration Status: Adequate & Stable (Adequate for transfer to floor.)
[2019-05-18] MEDS ORDERED: Lactated Ringers 1,000 ML IV ONE (18:30)
--- NOTE | 2019-05-18 18:52 | OR ---
SURGEON: LIZBETH CAMPOS MD DATE OF PROCEDURE: 05/18/2019 PREOPERATIVE DIAGNOSIS: Symptomatic cholelithiasis. POSTOPERATIVE DIAGNOSIS: Acute cholecystitis, secondary to cholelithiasis. PROCEDURE PERFORMED: Laparoscopic converted to open cholecystectomy. PRIMARY SURGEON: Lizbeth Campos MD. SECONDARY SURGEON: Jay Hernandez M.D. ANESTHESIA: General endotracheal anesthesia. FLUIDS: 1800 mL of crystalloid. ESTIMATED BLOOD LOSS: 350 mL. URINE OUTPUT: 200 mL. FINDINGS: Enlarged and inflamed gallbladder consistent with acute cholecystitis. A large amount of proximal inflammation of the gallbladder necessitating conversion from laparoscopic to open. DRAINS: 19-Bhutanese Hilton drain. COMPLICATIONS: None. INDICATIONS: The patient is a 23-year-old female who has a known history of cholelithiasis. She has had increasing pain postprandially and 2 days ago was admitted with inability to tolerate liquids or solids. Lab work showed an elevated alkaline phosphatase. An ultrasound showed evidence of multiple gallstones within the gallbladder with no evidence of acute cholecystitis. The patient and I discussed the need for cholecystectomy. I explained both the laparoscopic and open procedure. I explained to her that should I be unable to perform it safely laparoscopically, I would convert to open. I explained the expected perioperative course and the risks including bleeding, infection, or damage to the surrounding structures. The patient verbalized understanding and wishes to proceed. PROCEDURE IN DETAIL: The patient was brought to the OR and placed on the OR table in a supine position. A time-out was completed verifying the patient's name, age, date of , allergies, and procedure to be performed. General endotracheal anesthesia was induced. The left arm was tucked to the patient's side, and a Timmons catheter placed. The abdomen was prepped and draped in the usual standard fashion. I anesthetized the infraumbilical fold with 0.5% Marcaine plain. An 11 blade was used to make an incision along the infraumbilical fold. Cautery was used to dissect down through the layers of the subcutaneous fat. I then bluntly dissected down to the fascia. The fascia was elevated with Reinaldo's and incised sharply with heavy scissors. The peritoneum was identified. This was elevated with hemostats and entered sharply using Metzenbaum scissors. Entry into the abdomen was palpated digitally. Stay sutures were placed on either side of the fascia using 0 Vicryl suture. A 12 mm Balbir trocar was inserted in the abdomen. The abdomen was insufflated, and I inserted a 5 mm 30-degree scope. I inspected the area underneath my initial trocar placement. No damage to surrounding structures was noted. The patient was placed into reverse Trendelenburg position and airplaned slightly to the left. Trocars were placed in the following locations under direct visualization; 1 in the epigastric area, 1 along the right flank, and one 2 fingerbreadths below the right subcostal margin along the midclavicular line. The dome of the gallbladder was grasped and elevated cranially. There were some light adhesions along the body of the gallbladder to the omentum. These were taken down using electrocautery and blunt dissection. There was some thickened fat along the proximal half of the gallbladder. I started my dissection laterally, however, encountered bleeding. A clip was placed on a small bleeding artery, and I decided to begin my dissection medially. Using a combination of blunt dissection and hook cautery, I was able to take down some of the more distal attachments along the medial side. However, I was unable to completely dissect free the cystic duct. I was able to dissect free the cystic artery, but given that I could not obtain my critical view due to the level of inflammation, the decision was made to convert to open. The trocars were removed and a right subcostal incision was made using a 10 blade. This incorporated the epigastric and subcostal port. Electrocautery was used to dissect down through the level of the subcutaneous fascia and to the level of the peritoneum. The peritoneum was elevated with hemostats and incised sharply with Metzenbaum scissors. Entry into the abdomen was verified with a sebastian of the laparoscopic air. The incision was then extended medially and laterally. The dome of the gallbladder was grasped with a Nirmala and exposure obtained with retractors. Using a right angle and Kittner, the proximal adhesions were meticulously dissected. We identified the cystic artery and triply clipped and ligated this structure. We attempted to clear away more of the adhesions around the cystic duct, but were having difficulty with this. Instead, we took the gallbladder down using electrocautery in a dome- down fashion. This then allowed us better mobility proximally. The remainder of the adhesions were taken down using a right angle and blunt dissection. Once the cystic duct was completely cleared away, it was doubly clipped and ligated. The gallbladder was passed off the field. A combination of Annie, Surgicel, and Avitene was then placed in the gallbladder fossa and pressure was held for 3 minutes. We then re-inspected our operative site and it appeared to be hemostatic. A 19-Bhutanese round Hilton drain was placed into the field and brought out through the right flank port site. It was sutured to the skin with a 2-0 silk suture. The peritoneum and posterior rectus fascia were closed with a running 0 Vicryl suture. The anterior rectus sheath was closed with interrupted 0 Ethibond sutures. The subcutaneous fat layer was closed with a running 3-0 Vicryl stitch. A subcutaneous On-Q pump was placed next to the fascia. The skin was then closed with klaus. The infraumbilical port site was closed with interrupted 0 Vicryl sutures in the fascia and the skin was closed with klaus. Sterile dressings were applied. All counts were complete and correct at the end of the case. The patient was transferred to the PACU in stable condition. JEOVANY TONY /[id number]
[2019-05-18] MEDS: Lactated Ringers 1,000 ML IV SCH ×2 (19:42→21:08)
--- NOTE | 2019-05-18 20:05 | PCM.PN ---
- General Info Date of Service: 05/18/19 Admission Dx/Problem (Free Text): Symptomatic cholelithiasis Subjective Update: Called by RN due to lower blood pressure and mild tachycardia. Patient had SBP 75-80 and HR 100-110. ONELIA drain output 90ml since arrival to the floor and UOP 75ml. Patient's pain is well controlled. NG with minimal bilious output. She was given 1L of NS and her HR decreased to 92 and SBP increased to 91. - Review of Systems General: Reports: No Symptoms HEENT: Reports: No Symptoms Pulmonary: Reports: No Symptoms Cardiovascular: Reports: No Symptoms Gastrointestinal: Reports: No Symptoms Genitourinary: Reports: No Symptoms Musculoskeletal: Reports: No Symptoms - Patient Data Vitals - Most Recent: Last Vital Signs Temp 36.6 C 05/18/19 19:00 Pulse 90 05/18/19 19:00 Resp 16 05/18/19 19:00 BP 91/60 05/18/19 19:00 Pulse Ox 98 05/18/19 19:00 Weight - Most Recent: 92.079 kg I&O - Last 24 Hours: Intake & Output 05/18/19 05/18/19 05/18/19 06:59 14:59 22:59 Intake Total 1254 5150 Output Total 0 1100 Balance 1254 4050 Lab Results Last 24 Hours: Laboratory Results - last 24 hr 05/18/19 05/18/19 05/18/19 Range/Units 05:23 05:23 12:00 WBC 7.05 (4.0-11.0) K/uL RBC 4.76 (4.30-5.90) M/uL Hgb 11.5 L (12.0-16.0) g/dL Hct 38.4 (36.0-46.0) % MCV 80.7 (80.0-98.0) fL MCH 24.2 L (27.0-32.0) pg MCHC 29.9 L (31.0-37.0) g/dL RDW Std Deviation 45.5 (28.0-62.0) fl RDW Coeff of Donita 16 H (11.0-15.0) % Plt Count 331 (150-400) K/uL MPV 9.20 (7.40-12.00) fL Neut % (Auto) 44.1 L (48.0-80.0) % Lymph % (Auto) 45.0 H (16.0-40.0) % Bertie % (Auto) 8.7 (0.0-15.0) % Eos % (Auto) 1.3 (0.0-7.0) % Baso % (Auto) 0.9 (0.0-1.5) % Neut # (Auto) 3.1 (1.4-5.7) K/uL Lymph # (Auto) 3.2 H (0.6-2.4) K/uL Bertie # (Auto) 0.6 (0.0-0.8) K/uL Eos # (Auto) 0.1 (0.0-0.7) K/uL Baso # (Auto) 0.1 (0.0-0.1) K/uL Nucleated RBC % 0.0 /100WBC Nucleated RBCs # 0 K/uL Sodium 143 (136-145) mmol/L Potassium 3.8 (3.5-5.1) mmol/L Chloride 107 (98-107) mmol/L Carbon Dioxide 27.8 (21.0-32.0) mmol/L BUN 13 (7.0-18.0) mg/dL Creatinine 1.1 H (0.6-1.0) mg/dL Est Cr Clr Drug Dosing 73.83 mL/min Estimated GFR (MDRD) > 60.0 ml/min Glucose 86 (74-106) mg/dL Calcium 9.2 (8.5-10.1) mg/dL Total Bilirubin 0.4 (0.2-1.0) mg/dL AST 20 (15-37) IU/L ALT 49 (14-63) IU/L Alkaline Phosphatase 152 H (46-116) U/L Total Protein 7.4 (6.4-8.2) g/dL Albumin 3.4 (3.4-5.0) g/dL Globulin 4.0 (2.6-4.0) g/dL Albumin/Globulin Ratio 0.9 (0.9-1.6) Urine HCG, Qual NEGATIVE (NEGATIVE) 05/18/19 Range/Units 18:43 WBC (4.0-11.0) K/uL RBC (4.30-5.90) M/uL Hgb 9.2 L (12.0-16.0) g/dL Hct 30.4 L (36.0-46.0) % MCV (80.0-98.0) fL MCH (27.0-32.0) pg MCHC (31.0-37.0) g/dL RDW Std Deviation (28.0-62.0) fl RDW Coeff of Donita (11.0-15.0) % Plt Count (150-400) K/uL MPV (7.40-12.00) fL Neut % (Auto) (48.0-80.0) % Lymph % (Auto) (16.0-40.0) % Bertie % (Auto) (0.0-15.0) % Eos % (Auto) (0.0-7.0) % Baso % (Auto) (0.0-1.5) % Neut # (Auto) (1.4-5.7) K/uL Lymph # (Auto) (0.6-2.4) K/uL Bertie # (Auto) (0.0-0.8) K/uL Eos # (Auto) (0.0-0.7) K/uL Baso # (Auto) (0.0-0.1) K/uL Nucleated RBC % /100WBC Nucleated RBCs # K/uL Sodium (136-145) mmol/L Potassium (3.5-5.1) mmol/L Chloride (98-107) mmol/L Carbon Dioxide (21.0-32.0) mmol/L BUN (7.0-18.0) mg/dL Creatinine (0.6-1.0) mg/dL Est Cr Clr Drug Dosing mL/min Estimated GFR (MDRD) ml/min Glucose (74-106) mg/dL Calcium (8.5-10.1) mg/dL Total Bilirubin (0.2-1.0) mg/dL AST (15-37) IU/L ALT (14-63) IU/L Alkaline Phosphatase (46-116) U/L Total Protein (6.4-8.2) g/dL Albumin (3.4-5.0) g/dL Globulin (2.6-4.0) g/dL Albumin/Globulin Ratio (0.9-1.6) Urine HCG, Qual (NEGATIVE) Med Orders - Current: Current Medications Cyclobenzaprine HCl (Flexeril) 5 mg PO TID [facility] Fentanyl (Sublimaze) 50 - 100 mcg IVPUSH Q5M PRN PRN Reason: Pain (severe 7-10) Lactated Ringer's (Ringers, Lactated) 1,000 mls @ 125 mls/hr IV ASDIRECTED [facility] Last Admin: 05/18/19 19:42 Dose: 125 mls/hr Morphine Sulfate (Morphine) 2 mg IVPUSH Q1H PRN PRN Reason: Abdominal Pain Ondansetron HCl (Zofran Odt) 4 mg PO Q4H PRN PRN Reason: nausea, able to take PO Ondansetron HCl (Zofran) 4 mg IVPUSH Q4H PRN PRN Reason: Nausea Scopolamine (Transderm-Scop) 1.5 mg TRDERM Q72H PRN PRN Reason: Nausea Discontinued Medications Acetaminophen (Tylenol) 650 mg PO Q4H PRN PRN Reason: Pain (Mild 1-3)/fever Hydrocodone Bitart/Acetaminophen ([place] 325-5 Mg) 1 tab PO Q4H PRN PRN Reason: Pain (moderate 4-6) Bupivacaine HCl (Marcaine 0.5%) Confirm Administered Dose 30 ml .ROUTE .STK-MED ONE Stop: 05/18/19 12:33 Bupivacaine HCl (Marcaine 0.5%) Confirm Administered Dose 120 ml .ROUTE .STK- MED ONE Stop: 05/18/19 14:33 Cefazolin Sodium (Ancef) Confirm Administered Dose 2 gm .ROUTE .STK-MED ONE Stop: 05/18/19 13:14 Fentanyl (Sublimaze) Confirm Administered Dose 250 mcg .ROUTE .STK-MED ONE Stop: 05/18/19 12:00 Fentanyl (Sublimaze) Confirm Administered Dose 250 mcg .ROUTE .STK-MED ONE Stop: 05/18/19 13:36 Glycopyrrolate (Robinul) Confirm Administered Dose 0.8 mg .ROUTE .STK-MED ONE Stop: 05/18/19 11:58 Hydromorphone HCl (Dilaudid) Confirm Administered Dose 2 mg .ROUTE .STK-MED ONE Stop: 05/18/19 14:31 Hydromorphone HCl (Dilaudid) 2 mg IVPUSH ONETIME ONE Stop: 05/18/19 15:26 Last Admin: 05/18/19 16:28 Dose: 1 mg Sodium Chloride (Normal Saline) 1,000 mls @ 125 mls/hr IV Q8H [facility] Last Admin: 05/17/19 18:05 Dose: Not Given Potassium Chloride/Sodium Chloride (Normal Saline With 40 Meq Kcl) 1,000 mls @ 125 mls/hr IV CONTINUOUS [facility] Potassium Chloride/Sodium Chloride (Normal Saline With 40 Meq Kcl) 1,000 mls @ 125 mls/hr IV ONETIME ONE Stop: 05/18/19 01:09 Last Admin: 05/17/19 17:16 Dose: 125 mls/hr Sodium Chloride (Normal Saline) 1,000 mls @ 125 mls/hr IV Q8H [facility] Last Admin: 05/18/19 17:39 Dose: Not Given Sodium Chloride (Normal Saline) Confirm Administered Dose 20 mls @ as directed .ROUTE .STK-MED ONE Stop: 05/18/19 13:14 Acetaminophen (Ofirmev) Confirm Administered Dose 100 mls @ as directed IV .STK- MED ONE Stop: 05/18/19 15:18 Lactated Ringer's (Ringers, Lactated) 1,000 mls @ 125 mls/hr IV Q8H [facility] Last Admin: 05/18/19 17:19 Dose: 125 mls/hr Lactated Ringer's (Ringers, Lactated) 1,000 mls @ 999 mls/hr IV .BOLUS ONE Stop: 05/18/19 19:30 Last Admin: 05/18/19 18:38 Dose: 999 mls/hr Ketorolac Tromethamine (Toradol) Confirm Administered Dose 30 mg .ROUTE .STK- MED ONE Stop: 05/18/19 11:58 Labetalol HCl (Normodyne) Confirm Administered Dose 100 mg .ROUTE .STK-MED ONE Stop: 05/18/19 14:09 Lidocaine (Xylocaine-Mpf 2%) Confirm Administered Dose 5 ml .ROUTE .STK-MED ONE Stop: 05/18/19 11:58 Midazolam HCl (Versed 1 Mg/Ml) Confirm Administered Dose 2 mg .ROUTE .STK-MED ONE Stop: 05/18/19 12:01 Morphine Sulfate (Morphine) 2 mg IVPUSH Q2H PRN PRN Reason: Pain (severe 7-10) Stop: 05/18/19 16:54 Morphine Sulfate (Morphine) 2 mg IVPUSH Q1H PRN PRN Reason: Pain (severe 7-10) Stop: 05/18/19 16:54 Neostigmine Methylsulfate (Neostigmine) Confirm Administered Dose 5 mg .ROUTE .STK-MED ONE Stop: 05/18/19 11:58 Ondansetron HCl (Zofran) Confirm Administered Dose 4 mg .ROUTE .STK-MED ONE Stop: 05/18/19 11:58 Propofol (Diprivan 20 Ml) Confirm Administered Dose 200 mg .ROUTE .STK-MED ONE Stop: 05/18/19 12:00 Rocuronium [place] (Zemuron) Confirm Administered Dose 100 mg .ROUTE .STK-MED ONE Stop: 05/18/19 11:58 Sugammadex Sodium (Bridion) Confirm Administered Dose 200 mg .ROUTE .STK-MED ONE Stop: 05/18/19 15:18 - Exam General: Alert, Oriented, Cooperative, Other (slightly pale) HEENT: Pupils Equal, Pupils Reactive Lungs: Normal Respiratory Effort Cardiovascular: Regular Rate GI/Abdominal Exam: Soft, Non-Tender, No Distention, No Mass, Other (Dressings clean dry and intact. ONELIA with deep purple sanguinous output. ) (Female) Exam: Normal External Exam, Other (UOP in harvey yelllow and not concentrated. ) - Problem List & Annotations (1) Abdominal pain SNOMED Code(s): 43189229 Code(s): R10.9 - UNSPECIFIED ABDOMINAL PAIN Status: Acute Current Visit: No (2) History of gallstones SNOMED Code(s): 916939364 Code(s): Z87.19 - PERSONAL HISTORY OF OTHER DISEASES OF THE DIGESTIVE SYSTEM Status: Acute Current Visit: No - Problem List Review Problem List Initiated/Reviewed/Updated: Yes - My Orders Last 24 Hours: My Active Orders 05/18/19 16:03 Patient Status [ADT] Routine 05/18/19 16:08 Urinary Catheter Assessment [RC] ASDIRECTED 05/18/19 16:09 NG [Gastrointestinal Tube Mgmt] [RC] ASDIRECTED Surgical Drains [Drain Management] [RC] ASDIRECTED 05/18/19 16:10 IS (RT) [RT Incentive Spirometry] [RC] Q1HWA 05/18/19 16:15 Harvey Catheter Insertion [Insert Urinary Catheter] [OM.PC] Q24H 05/18/19 18:15 Lactated Ringers [Ringers, Lactated] 1,000 ml IV ASDIRECTED 05/18/19 19:23 TYPE AND SCREEN [BBK] Stat 05/18/19 19:57 Morphine 2 mg IVPUSH Q1H PRN 05/18/19 19:58 Notify Provider Vital Signs [RC] ASDIRECTED 05/18/19 20:00 HEMOGLOBIN/HEMATOCRIT,HH [HEME] Routine 05/18/19 22:00 Cyclobenzaprine [Flexeril] 5 mg PO TID - Plan Plan:: Patient with acute blood loss likely from surgery. Plt and INR normal pre-op. Slightly anemic pre-op at 11.5. ONELIA output appears venous and not bright red. Her abdomen is non-acute. Giving another 500ml bolus of fluids since she appears to be responding well to fluids. Will get CBC, CMP and INR, PT,PTT right now. Q6hr hemoglobin overnight. Monitor UOP and ONELIA output closely.
[2019-05-18] MEDS ORDERED: Lactated Ringers 500 ML IV ONE (20:11)
[2019-05-18 20:40] LABS: CARBON DIOXIDE,CO2 25.9 mmol/L (21.0-32.0); POTASSIUM,K 4.3 mmol/L (3.5-5.1)
[2019-05-18] MEDS: Cyclobenzaprine 5 MG Tab PO SCH (22:03)
[2019-05-18] MEDS: Morphine 2 MG/ML Syringe IVPUSH PRN (23:58)
[2019-05-19] MEDS: Morphine 2 MG/ML Syringe IVPUSH PRN ×6 (03:03→16:09)
[2019-05-19] MEDS: Cyclobenzaprine 5 MG Tab PO SCH ×3 (05:19→21:05)
[2019-05-19 06:13] LABS: CARBON DIOXIDE,CO2 25.9 mmol/L (21.0-32.0); POTASSIUM,K 4.6 mmol/L (3.5-5.1)
--- NOTE | 2019-05-19 08:21 | PCM48HPAN ---
Post Anesthesia Note - EVALUATION WITHIN 48HRS OF ANESTHETIC Vital Signs in Normal Range: Yes Patient Participated in Evaluation: Yes Respiratory Function Stable: Yes Airway Patent: Yes Cardiovascular Function Stable: Yes Hydration Status Stable: Yes Pain Control Satisfactory: Yes Nausea and Vomiting Control Satisfactory: Yes Mental Status Recovered: Yes Pulse Rate: 68 Resp Rate: 14 Temperature: 36.6 C Blood Pressure: 99/71 - COMMENTS/OBSERVATIONS Free Text/Narrative:: Patient states that pain is under control
[2019-05-19] MEDS: Acetaminophen/oxyCODONE 325-5 MG Tab PO PRN ×4 (08:26→20:36)
[2019-05-19] MEDS: Lactated Ringers 1,000 ML IV SCH ×2 (10:15→18:22)
--- NOTE | 2019-05-19 11:39 | PCM.PN ---
- General Info Date of Service: 05/19/19 Subjective Update: Patient was having a significant amount of dark bloody output from her ONELIA drain last night. She became mildly hypotensive and tachycardic. She responded to IV fluids but after her bolus of 1.5 L, her blood pressure became soft again. Her hemoglobin went from 11.5 preop to 9.2 to 8.2. She is given 2 units of packed red blood cells and responded appropriately with a 2 g rise in her hemoglobin. Since 1:00 this morning she has had scant output from the ONELIA drain. From 7 until 11:30 she is only had 45 mils of bloody output. Her blood pressure is better and she is no longer tachycardic. Her repeat hemoglobin this morning is 10. Her platelets are normal. She complains of pain with deep breathing and coughing. She received several doses of IV morphine last night. Her NG had scant output. - Review of Systems General: Reports: Weakness HEENT: Reports: No Symptoms Pulmonary: Reports: No Symptoms Cardiovascular: Reports: No Symptoms Gastrointestinal: Reports: Abdominal Pain Genitourinary: Reports: No Symptoms Musculoskeletal: Reports: No Symptoms - Patient Data Vitals - Most Recent: Last Vital Signs Temp 36.6 C 05/19/19 08:21 Pulse 68 05/19/19 08:21 Resp 14 05/19/19 08:21 BP 99/71 05/19/19 08:21 Pulse Ox 97 05/19/19 08:00 Weight - Most Recent: 92.079 kg I&O - Last 24 Hours: Intake & Output 05/18/19 05/19/19 05/19/19 22:59 06:59 14:59 Intake Total 6168 587 Output Total 1100 1140 Balance 5068 -553 Lab Results Last 24 Hours: Laboratory Results - last 24 hr 05/18/19 05/18/19 05/18/19 Range/Units 12:00 18:43 19:23 WBC (4.0-11.0) K/uL RBC (4.30-5.90) M/uL Hgb 9.2 L (12.0-16.0) g/dL Hct 30.4 L (36.0-46.0) % MCV (80.0-98.0) fL MCH (27.0-32.0) pg MCHC (31.0-37.0) g/dL RDW Std Deviation (28.0-62.0) fl RDW Coeff of Donita (11.0-15.0) % Plt Count (150-400) K/uL MPV (7.40-12.00) fL Neut % (Auto) (48.0-80.0) % Lymph % (Auto) (16.0-40.0) % [place] % (Auto) (0.0-15.0) % Eos % (Auto) (0.0-7.0) % Baso % (Auto) (0.0-1.5) % Neut # (Auto) (1.4-5.7) K/uL Lymph # (Auto) (0.6-2.4) K/uL [place] # (Auto) (0.0-0.8) K/uL Eos # (Auto) (0.0-0.7) K/uL Baso # (Auto) (0.0-0.1) K/uL Nucleated RBC % /100WBC Nucleated RBCs # K/uL INR APTT (18.6-31.3) SEC Sodium (136-145) mmol/L Potassium (3.5-5.1) mmol/L Chloride (98-107) mmol/L Carbon Dioxide (21.0-32.0) mmol/L BUN (7.0-18.0) mg/dL Creatinine (0.6-1.0) mg/dL Est Cr Clr Drug Dosing mL/min Estimated GFR (MDRD) ml/min Glucose (74-106) mg/dL Calcium (8.5-10.1) mg/dL Total Bilirubin (0.2-1.0) mg/dL AST (15-37) IU/L ALT (14-63) IU/L Alkaline Phosphatase (46-116) U/L Total Protein (6.4-8.2) g/dL Albumin (3.4-5.0) g/dL Globulin (2.6-4.0) g/dL Albumin/Globulin Ratio (0.9-1.6) Urine HCG, Qual NEGATIVE (NEGATIVE) Blood Type O POSITIVE Antibody Screen NEGATIVE Crossmatch See Detail 05/18/19 05/18/19 05/18/19 Range/Units 20:10 20:10 20:10 WBC 18.12 H (4.0-11.0) K/uL RBC 3.33 L (4.30-5.90) M/uL Hgb 8.2 L (12.0-16.0) g/dL Hct 27.0 L (36.0-46.0) % MCV 81.1 (80.0-98.0) fL MCH 24.6 L (27.0-32.0) pg MCHC 30.4 L (31.0-37.0) g/dL RDW Std Deviation 46.4 (28.0-62.0) fl RDW Coeff of Donita 16 H (11.0-15.0) % Plt Count 393 (150-400) K/uL MPV 8.80 (7.40-12.00) fL Neut % (Auto) (48.0-80.0) % Lymph % (Auto) (16.0-40.0) % [place] % (Auto) (0.0-15.0) % Eos % (Auto) (0.0-7.0) % Baso % (Auto) (0.0-1.5) % Neut # (Auto) (1.4-5.7) K/uL Lymph # (Auto) (0.6-2.4) K/uL [place] # (Auto) (0.0-0.8) K/uL Eos # (Auto) (0.0-0.7) K/uL Baso # (Auto) (0.0-0.1) K/uL Nucleated RBC % 0.0 /100WBC Nucleated RBCs # 0 K/uL INR 1.24 APTT 24.5 (18.6-31.3) SEC Sodium 144 (136-145) mmol/L Potassium 4.3 (3.5-5.1) mmol/L Chloride 109 H (98-107) mmol/L Carbon Dioxide 25.9 (21.0-32.0) mmol/L BUN 13 (7.0-18.0) mg/dL Creatinine 1.4 H (0.6-1.0) mg/dL Est Cr Clr Drug Dosing 58.01 mL/min Estimated GFR (MDRD) 46.2 ml/min Glucose 136 H (74-106) mg/dL Calcium 8.1 L (8.5-10.1) mg/dL Total Bilirubin 0.5 (0.2-1.0) mg/dL AST 39 H (15-37) IU/L ALT 59 (14-63) IU/L Alkaline Phosphatase 104 (46-116) U/L Total Protein 5.2 L (6.4-8.2) g/dL Albumin 2.5 L (3.4-5.0) g/dL Globulin 2.7 (2.6-4.0) g/dL Albumin/Globulin Ratio 0.9 (0.9-1.6) Urine HCG, Qual (NEGATIVE) Blood Type Antibody Screen Crossmatch 05/19/19 05/19/19 05/19/19 Range/Units 00:18 05:25 05:25 WBC 12.12 H (4.0-11.0) K/uL RBC 4.02 L (4.30-5.90) M/uL Hgb 9.1 L 10.0 L (12.0-16.0) g/dL Hct 29.6 L 32.2 L (36.0-46.0) % MCV 80.1 (80.0-98.0) fL MCH 24.9 L (27.0-32.0) pg MCHC 31.1 (31.0-37.0) g/dL RDW Std Deviation 47.0 (28.0-62.0) fl RDW Coeff of Donita 16 H (11.0-15.0) % Plt Count 297 (150-400) K/uL MPV 9.30 (7.40-12.00) fL Neut % (Auto) 62.0 (48.0-80.0) % Lymph % (Auto) 29.5 (16.0-40.0) % [place] % (Auto) 8.2 (0.0-15.0) % Eos % (Auto) 0.1 (0.0-7.0) % Baso % (Auto) 0.2 (0.0-1.5) % Neut # (Auto) 7.5 H (1.4-5.7) K/uL Lymph # (Auto) 3.6 H (0.6-2.4) K/uL [place] # (Auto) 1.0 H (0.0-0.8) K/uL Eos # (Auto) 0.0 (0.0-0.7) K/uL Baso # (Auto) 0.0 (0.0-0.1) K/uL Nucleated RBC % 0.0 /100WBC Nucleated RBCs # 0 K/uL INR APTT (18.6-31.3) SEC Sodium 144 (136-145) mmol/L Potassium 4.6 (3.5-5.1) mmol/L Chloride 109 H (98-107) mmol/L Carbon Dioxide 25.9 (21.0-32.0) mmol/L BUN 13 (7.0-18.0) mg/dL Creatinine 1.3 H (0.6-1.0) mg/dL Est Cr Clr Drug Dosing 62.47 mL/min Estimated GFR (MDRD) 50.3 ml/min Glucose 120 H (74-106) mg/dL Calcium 8.3 L (8.5-10.1) mg/dL Total Bilirubin 0.8 (0.2-1.0) mg/dL AST 33 (15-37) IU/L ALT 51 (14-63) IU/L Alkaline Phosphatase 99 (46-116) U/L Total Protein 5.5 L (6.4-8.2) g/dL Albumin 2.6 L (3.4-5.0) g/dL Globulin 2.9 (2.6-4.0) g/dL Albumin/Globulin Ratio 0.9 (0.9-1.6) Urine HCG, Qual (NEGATIVE) Blood Type Antibody Screen Crossmatch Med Orders - Current: Current Medications Cyclobenzaprine HCl (Flexeril) 5 mg PO TID [facility] Last Admin: 05/19/19 05:19 Dose: 5 mg Fentanyl (Sublimaze) 50 - 100 mcg IVPUSH Q5M PRN PRN Reason: Pain (severe 7-10) Lactated Ringer's (Ringers, Lactated) 1,000 mls @ 125 mls/hr IV ASDIRECTED [facility] Last Admin: 05/19/19 10:15 Dose: 125 mls/hr Morphine Sulfate (Morphine) 2 mg IVPUSH Q1H PRN PRN Reason: Abdominal Pain Last Admin: 05/19/19 10:57 Dose: 2 mg Ondansetron HCl (Zofran Odt) 4 mg PO Q4H PRN PRN Reason: nausea, able to take PO Ondansetron HCl (Zofran) 4 mg IVPUSH Q4H PRN PRN Reason: Nausea Oxycodone/Acetaminophen (Percocet 325-5 Mg) 2 tab PO Q4H PRN PRN Reason: Pain Last Admin: 05/19/19 08:26 Dose: 2 tab Scopolamine (Transderm-Scop) 1.5 mg TRDERM Q72H PRN PRN Reason: Nausea Discontinued Medications Acetaminophen (Tylenol) 650 mg PO Q4H PRN PRN Reason: Pain (Mild 1-3)/fever Hydrocodone Bitart/Acetaminophen ([place] 325-5 Mg) 1 tab PO Q4H PRN PRN Reason: Pain (moderate 4-6) Bupivacaine HCl (Marcaine 0.5%) Confirm Administered Dose 30 ml .ROUTE .STK-MED ONE Stop: 05/18/19 12:33 Bupivacaine HCl (Marcaine 0.5%) Confirm Administered Dose 120 ml .ROUTE .STK- MED ONE Stop: 05/18/19 14:33 Cefazolin Sodium (Ancef) Confirm Administered Dose 2 gm .ROUTE .STK-MED ONE Stop: 05/18/19 13:14 Fentanyl (Sublimaze) Confirm Administered Dose 250 mcg .ROUTE .STK-MED ONE Stop: 05/18/19 12:00 Fentanyl (Sublimaze) Confirm Administered Dose 250 mcg .ROUTE .STK-MED ONE Stop: 05/18/19 13:36 Glycopyrrolate (Robinul) Confirm Administered Dose 0.8 mg .ROUTE .STK-MED ONE Stop: 05/18/19 11:58 Hydromorphone HCl (Dilaudid) Confirm Administered Dose 2 mg .ROUTE .STK-MED ONE Stop: 05/18/19 14:31 Hydromorphone HCl (Dilaudid) 2 mg IVPUSH ONETIME ONE Stop: 05/18/19 15:26 Last Admin: 05/18/19 16:28 Dose: 1 mg Sodium Chloride (Normal Saline) 1,000 mls @ 125 mls/hr IV Q8H [facility] Last Admin: 05/17/19 18:05 Dose: Not Given Potassium Chloride/Sodium Chloride (Normal Saline With 40 Meq Kcl) 1,000 mls @ 125 mls/hr IV CONTINUOUS [facility] Potassium Chloride/Sodium Chloride (Normal Saline With 40 Meq Kcl) 1,000 mls @ 125 mls/hr IV ONETIME ONE Stop: 05/18/19 01:09 Last Admin: 05/17/19 17:16 Dose: 125 mls/hr Sodium Chloride (Normal Saline) 1,000 mls @ 125 mls/hr IV Q8H [facility] Last Admin: 05/18/19 17:39 Dose: Not Given Sodium Chloride (Normal Saline) Confirm Administered Dose 20 mls @ as directed .ROUTE .STK-MED ONE Stop: 05/18/19 13:14 Acetaminophen (Ofirmev) Confirm Administered Dose 100 mls @ as directed IV .STK- MED ONE Stop: 05/18/19 15:18 Lactated Ringer's (Ringers, Lactated) 1,000 mls @ 125 mls/hr IV Q8H [facility] Last Admin: 05/18/19 17:19 Dose: 125 mls/hr Lactated Ringer's (Ringers, Lactated) 1,000 mls @ 999 mls/hr IV .BOLUS ONE Stop: 05/18/19 19:30 Last Admin: 05/18/19 18:38 Dose: 999 mls/hr Lactated Ringer's (Ringers, Lactated) 500 mls @ 500 mls/hr IV .BOLUS ONE Stop: 05/18/19 21:10 Last Admin: 05/18/19 21:01 Dose: 500 mls/hr Ketorolac Tromethamine (Toradol) Confirm Administered Dose 30 mg .ROUTE .STK- MED ONE Stop: 05/18/19 11:58 Labetalol HCl (Normodyne) Confirm Administered Dose 100 mg .ROUTE .STK-MED ONE Stop: 05/18/19 14:09 Lidocaine (Xylocaine-Mpf 2%) Confirm Administered Dose 5 ml .ROUTE .STK-MED ONE Stop: 05/18/19 11:58 Midazolam HCl (Versed 1 Mg/Ml) Confirm Administered Dose 2 mg .ROUTE .STK-MED ONE Stop: 05/18/19 12:01 Morphine Sulfate (Morphine) 2 mg IVPUSH Q2H PRN PRN Reason: Pain (severe 7-10) Stop: 05/18/19 16:54 Morphine Sulfate (Morphine) 2 mg IVPUSH Q1H PRN PRN Reason: Pain (severe 7-10) Stop: 05/18/19 16:54 Neostigmine Methylsulfate (Neostigmine) Confirm Administered Dose 5 mg .ROUTE .STK-MED ONE Stop: 05/18/19 11:58 Ondansetron HCl (Zofran) Confirm Administered Dose 4 mg .ROUTE .STK-MED ONE Stop: 05/18/19 11:58 Propofol (Diprivan 20 Ml) Confirm Administered Dose 200 mg .ROUTE .STK-MED ONE Stop: 05/18/19 12:00 Rocuronium [place] (Zemuron) Confirm Administered Dose 100 mg .ROUTE .STK-MED ONE Stop: 05/18/19 11:58 Sugammadex Sodium (Bridion) Confirm Administered Dose 200 mg .ROUTE .STK-MED ONE Stop: 05/18/19 15:18 - Exam General: Alert, Oriented, Cooperative, No Acute Distress HEENT: Pupils Equal Lungs: Normal Respiratory Effort Cardiovascular: Regular Rate GI/Abdominal Exam: Soft, Non-Tender, No Distention, No Mass, Other (Dressings clean dry and intact. ONELIA with scant bloody drainage.) - Problem List & Annotations (1) Abdominal pain SNOMED Code(s): 24837391 Code(s): R10.9 - UNSPECIFIED ABDOMINAL PAIN Status: Acute Current Visit: No (2) History of gallstones SNOMED Code(s): 212770565 Code(s): Z87.19 - PERSONAL HISTORY OF OTHER DISEASES OF THE DIGESTIVE SYSTEM Status: Acute Current Visit: No - Problem List Review Problem List Initiated/Reviewed/Updated: Yes - My Orders Last 24 Hours: My Active Orders 05/18/19 16:03 Patient Status [ADT] Routine 05/18/19 16:08 Urinary Catheter Assessment [RC] Q4H 05/18/19 16:10 IS (RT) [RT Incentive Spirometry] [RC] Q1HWA 05/18/19 18:15 Lactated Ringers [Ringers, Lactated] 1,000 ml IV ASDIRECTED 05/18/19 19:57 Morphine 2 mg IVPUSH Q1H PRN 05/18/19 19:58 Notify Provider Vital Signs [RC] ASDIRECTED 05/18/19 22:00 Cyclobenzaprine [Flexeril] 5 mg PO TID 05/19/19 07:17 Acetaminophen/oxyCODONE [Percocet 325-5 MG] 2 tab PO Q4H PRN NG [Nasogastric Orogastric Tube Removal] [OM.PC] Urgent 05/19/19 17:00 HEMATOCRIT [HEME] Timed HEMOGLOBIN [HEME] Timed 05/19/19 Lunch Clear Liquid Diet [DIET] - Plan Plan:: Patient is stable this morning with no further signs of bleeding. I had her stay in bed this morning but since she has remained stable we can begin to get her up out of bed. Nursing staff will sit her at the edge of the bed this afternoon. NG was removed and patient tolerated sips of clears. I prescribed oral Percocet as needed for pain. This helped with pain control. She can continue to get IV morphine and scheduled Flexeril. We'll repeat a hemoglobin and hematocrit at 5:00 tonight. Continue IV fluids at 125 mils per hour. We'll keep the Timmons catheter in place until the patient is more mobile. We'll keep ONELIA drain in place. Repeat CBC and CMP in the morning. Clear liquid diet today.
[2019-05-20] MEDS: Acetaminophen/oxyCODONE 325-5 MG Tab PO PRN ×5 (00:58→21:19)
[2019-05-20] MEDS: Lactated Ringers 1,000 ML IV SCH (02:15)
[2019-05-20] MEDS: Cyclobenzaprine 5 MG Tab PO SCH ×3 (05:01→21:15)
[2019-05-20] MEDS: Multivitamin Tab PO SCH (08:21)
[2019-05-20 08:25] LABS: BLOOD UREA NITROGEN,BUN 8 mg/dL (7.0-18.0); CARBON DIOXIDE,CO2 29.6 mmol/L (21.0-32.0); CHLORIDE,CL 106 mmol/L (98-107); GLUCOSE RANDOM 87 mg/dL (74-106); POTASSIUM,K 3.8 mmol/L (3.5-5.1); SODIUM,NA 140 mmol/L (136-145)
--- NOTE | 2019-05-20 12:15 | PCM.SURGPN ---
- General Info Date of Service: 05/20/19 Date of Surgery/Procedure: 05/18/19 POD#: 2 Functional Status: Reports: Other (Patient having increased ONELIA output this morning. 160ml since 4am and appears bright red. Patients vitals are stable. Hemoglobin 7.7 this morning. Plts normal. Patient feels tired. Able to sit at edge of bed without issues this morning. Tolerating diet. Pain well controlled. ) - Patient Data Vitals - Most Recent: Last Vital Signs Temp 36.9 C 05/20/19 10:40 Pulse 91 05/20/19 10:40 Resp 16 05/20/19 10:40 BP 117/63 05/20/19 10:40 Pulse Ox 98 05/20/19 10:40 Weight - Most Recent: 92.079 kg I&O - Last 24 Hours: Intake & Output 05/19/19 05/20/19 05/20/19 22:59 06:59 14:59 Intake Total 2037 1836 12 Output Total 705 625 Balance 1332 1211 12 Lab Results Last 24 Hrs: Laboratory Results - last 24 hr 05/18/19 05/19/19 05/20/19 Range/Units 19:23 17:11 07:55 WBC 10.18 (4.0-11.0) K/uL RBC 3.06 L (4.30-5.90) M/uL Hgb 9.1 L 7.7 L (12.0-16.0) g/dL Hct 29.0 L 24.9 L (36.0-46.0) % MCV 81.4 (80.0-98.0) fL MCH 25.2 L (27.0-32.0) pg MCHC 30.9 L (31.0-37.0) g/dL RDW Std Deviation 48.1 (28.0-62.0) fl RDW Coeff of Donita 16 H (11.0-15.0) % Plt Count 210 (150-400) K/uL MPV 8.60 (7.40-12.00) fL Nucleated RBC % 0.0 /100WBC Nucleated RBCs # 0 K/uL Sodium (136-145) mmol/L Potassium (3.5-5.1) mmol/L Chloride (98-107) mmol/L Carbon Dioxide (21.0-32.0) mmol/L BUN (7.0-18.0) mg/dL Creatinine (0.6-1.0) mg/dL Est Cr Clr Drug Dosing mL/min Estimated GFR (MDRD) ml/min Glucose (74-106) mg/dL Calcium (8.5-10.1) mg/dL Total Bilirubin (0.2-1.0) mg/dL AST (15-37) IU/L ALT (14-63) IU/L Alkaline Phosphatase (46-116) U/L Total Protein (6.4-8.2) g/dL Albumin (3.4-5.0) g/dL Globulin (2.6-4.0) g/dL Albumin/Globulin Ratio (0.9-1.6) Blood Type O POSITIVE Antibody Screen NEGATIVE Crossmatch See Detail 05/20/19 Range/Units 07:55 WBC (4.0-11.0) K/uL RBC (4.30-5.90) M/uL Hgb (12.0-16.0) g/dL Hct (36.0-46.0) % MCV (80.0-98.0) fL MCH (27.0-32.0) pg MCHC (31.0-37.0) g/dL RDW Std Deviation (28.0-62.0) fl RDW Coeff of Donita (11.0-15.0) % Plt Count (150-400) K/uL MPV (7.40-12.00) fL Nucleated RBC % /100WBC Nucleated RBCs # K/uL Sodium 140 (136-145) mmol/L Potassium 3.8 (3.5-5.1) mmol/L Chloride 106 (98-107) mmol/L Carbon Dioxide 29.6 (21.0-32.0) mmol/L BUN 8 (7.0-18.0) mg/dL Creatinine 0.9 (0.6-1.0) mg/dL Est Cr Clr Drug Dosing 90.23 mL/min Estimated GFR (MDRD) > 60.0 ml/min Glucose 87 (74-106) mg/dL Calcium 8.3 L (8.5-10.1) mg/dL Total Bilirubin 0.5 (0.2-1.0) mg/dL AST 19 (15-37) IU/L ALT 35 (14-63) IU/L Alkaline Phosphatase 86 (46-116) U/L Total Protein 5.5 L (6.4-8.2) g/dL Albumin 2.5 L (3.4-5.0) g/dL Globulin 3.0 (2.6-4.0) g/dL Albumin/Globulin Ratio 0.8 L (0.9-1.6) Blood Type Antibody Screen Crossmatch Med Orders - Current: Current Medications Cyclobenzaprine HCl (Flexeril) 5 mg PO TID [facility] Last Admin: 05/20/19 05:01 Dose: 5 mg Fentanyl (Sublimaze) 50 - 100 mcg IVPUSH Q5M PRN PRN Reason: Pain (severe 7-10) Morphine Sulfate (Morphine) 2 mg IVPUSH Q1H PRN PRN Reason: Abdominal Pain Last Admin: 05/19/19 16:09 Dose: 2 mg Multivitamins/Minerals/Vitamin C (Tab-A-Roverto) 1 tab PO DAILY [facility] Last Admin: 05/20/19 08:21 Dose: 1 tab Ondansetron HCl (Zofran Odt) 4 mg PO Q4H PRN PRN Reason: nausea, able to take PO Ondansetron HCl (Zofran) 4 mg IVPUSH Q4H PRN PRN Reason: Nausea Oxycodone/Acetaminophen (Percocet 325-5 Mg) 2 tab PO Q4H PRN PRN Reason: Pain Last Admin: 05/20/19 09:28 Dose: 2 tab Scopolamine (Transderm-Scop) 1.5 mg TRDERM Q72H PRN PRN Reason: Nausea Discontinued Medications Acetaminophen (Tylenol) 650 mg PO Q4H PRN PRN Reason: Pain (Mild 1-3)/fever Hydrocodone Bitart/Acetaminophen ([place] 325-5 Mg) 1 tab PO Q4H PRN PRN Reason: Pain (moderate 4-6) Bupivacaine HCl (Marcaine 0.5%) Confirm Administered Dose 30 ml .ROUTE .STK-MED ONE Stop: 05/18/19 12:33 Bupivacaine HCl (Marcaine 0.5%) Confirm Administered Dose 120 ml .ROUTE .STK- MED ONE Stop: 05/18/19 14:33 Cefazolin Sodium (Ancef) Confirm Administered Dose 2 gm .ROUTE .STK-MED ONE Stop: 05/18/19 13:14 Fentanyl (Sublimaze) Confirm Administered Dose 250 mcg .ROUTE .STK-MED ONE Stop: 05/18/19 12:00 Fentanyl (Sublimaze) Confirm Administered Dose 250 mcg .ROUTE .STK-MED ONE Stop: 05/18/19 13:36 Glycopyrrolate (Robinul) Confirm Administered Dose 0.8 mg .ROUTE .STK-MED ONE Stop: 05/18/19 11:58 Hydromorphone HCl (Dilaudid) Confirm Administered Dose 2 mg .ROUTE .STK-MED ONE Stop: 05/18/19 14:31 Hydromorphone HCl (Dilaudid) 2 mg IVPUSH ONETIME ONE Stop: 05/18/19 15:26 Last Admin: 05/18/19 16:28 Dose: 1 mg Sodium Chloride (Normal Saline) 1,000 mls @ 125 mls/hr IV Q8H [facility] Last Admin: 05/17/19 18:05 Dose: Not Given Potassium Chloride/Sodium Chloride (Normal Saline With 40 Meq Kcl) 1,000 mls @ 125 mls/hr IV CONTINUOUS [facility] Potassium Chloride/Sodium Chloride (Normal Saline With 40 Meq Kcl) 1,000 mls @ 125 mls/hr IV ONETIME ONE Stop: 05/18/19 01:09 Last Admin: 05/17/19 17:16 Dose: 125 mls/hr Sodium Chloride (Normal Saline) 1,000 mls @ 125 mls/hr IV Q8H [facility] Last Admin: 05/18/19 17:39 Dose: Not Given Sodium Chloride (Normal Saline) Confirm Administered Dose 20 mls @ as directed .ROUTE .STK-MED ONE Stop: 05/18/19 13:14 Acetaminophen (Ofirmev) Confirm Administered Dose 100 mls @ as directed IV .STK- MED ONE Stop: 05/18/19 15:18 Lactated Ringer's (Ringers, Lactated) 1,000 mls @ 125 mls/hr IV Q8H [facility] Last Admin: 05/18/19 17:19 Dose: 125 mls/hr Lactated Ringer's (Ringers, Lactated) 1,000 mls @ 125 mls/hr IV ASDIRECTED [facility] Last Admin: 05/20/19 02:15 Dose: 125 mls/hr Lactated Ringer's (Ringers, Lactated) 1,000 mls @ 999 mls/hr IV .BOLUS ONE Stop: 05/18/19 19:30 Last Admin: 05/18/19 18:38 Dose: 999 mls/hr Lactated Ringer's (Ringers, Lactated) 500 mls @ 500 mls/hr IV .BOLUS ONE Stop: 05/18/19 21:10 Last Admin: 05/18/19 21:01 Dose: 500 mls/hr Ketorolac Tromethamine (Toradol) Confirm Administered Dose 30 mg .ROUTE .STK- MED ONE Stop: 05/18/19 11:58 Labetalol HCl (Normodyne) Confirm Administered Dose 100 mg .ROUTE .STK-MED ONE Stop: 05/18/19 14:09 Lidocaine (Xylocaine-Mpf 2%) Confirm Administered Dose 5 ml .ROUTE .STK-MED ONE Stop: 05/18/19 11:58 Midazolam HCl (Versed 1 Mg/Ml) Confirm Administered Dose 2 mg .ROUTE .STK-MED ONE Stop: 05/18/19 12:01 Morphine Sulfate (Morphine) 2 mg IVPUSH Q2H PRN PRN Reason: Pain (severe 7-10) Stop: 05/18/19 16:54 Morphine Sulfate (Morphine) 2 mg IVPUSH Q1H PRN PRN Reason: Pain (severe 7-10) Stop: 05/18/19 16:54 Neostigmine Methylsulfate (Neostigmine) Confirm Administered Dose 5 mg .ROUTE .STK-MED ONE Stop: 05/18/19 11:58 Ondansetron HCl (Zofran) Confirm Administered Dose 4 mg .ROUTE .STK-MED ONE Stop: 05/18/19 11:58 Propofol (Diprivan 20 Ml) Confirm Administered Dose 200 mg .ROUTE .STK-MED ONE Stop: 05/18/19 12:00 Rocuronium [place] (Zemuron) Confirm Administered Dose 100 mg .ROUTE .STK-MED ONE Stop: 05/18/19 11:58 Sugammadex Sodium (Bridion) Confirm Administered Dose 200 mg .ROUTE .STK-MED ONE Stop: 05/18/19 15:18 - Exam General: Alert, Oriented, Cooperative HEENT: Pupils Equal, Pupils Reactive Lungs: Normal Respiratory Effort Cardiovascular: Regular Rate GI/Abdominal Exam: Soft, Non-Tender, No Distention, No Mass, Other (Drain with bright bloody output. ) Skin: Warm, Dry, Intact Psy/Mental Status: Alert, Normal Affect, Normal Mood - Problem List & Annotations (1) Abdominal pain SNOMED Code(s): 93864674 Code(s): R10.9 - UNSPECIFIED ABDOMINAL PAIN Status: Acute Current Visit: No (2) History of gallstones SNOMED Code(s): 356448870 Code(s): Z87.19 - PERSONAL HISTORY OF OTHER DISEASES OF THE DIGESTIVE SYSTEM Status: Acute Current Visit: No - Problem List Review Problem List Initiated/Reviewed/Updated: Yes - My Orders Last 24 Hours: Active Orders 24 hr Category Date Time Status Communication Order [RC] DAILY Care 05/20/19 07:42 Active Regular Diet [DIET] Diet 05/20/19 Lunch Active HEMATOCRIT [HEME] Stat Lab 05/20/19 12:10 Ordered HEMOGLOBIN [HEME] Stat Lab 05/20/19 12:10 Ordered Multivitamins [Tab-A-Roverto] Med 05/20/19 09:00 Active 1 tab PO DAILY Medication Orders Cyclobenzaprine HCl (Flexeril) 5 mg PO TID [facility] Last Admin: 05/20/19 05:01 Dose: 5 mg Admin: 05/19/19 21:05 Dose: 5 mg Admin: 05/19/19 13:24 Dose: 5 mg Admin: 05/19/19 05:19 Dose: 5 mg Admin: 05/18/19 22:03 Dose: 5 mg Fentanyl (Sublimaze) 50 - 100 mcg IVPUSH Q5M PRN PRN Reason: Pain (severe 7-10) Morphine Sulfate (Morphine) 2 mg IVPUSH Q1H PRN PRN Reason: Abdominal Pain Last Admin: 05/19/19 16:09 Dose: 2 mg Admin: 05/19/19 12:09 Dose: 2 mg Admin: 05/19/19 10:57 Dose: 2 mg Admin: 05/19/19 07:34 Dose: 2 mg Admin: 05/19/19 05:21 Dose: 2 mg Admin: 05/19/19 03:03 Dose: 2 mg Admin: 05/18/19 23:58 Dose: 2 mg Multivitamins/Minerals/Vitamin C (Tab-A-Roverto) 1 tab PO DAILY [facility] Last Admin: 05/20/19 08:21 Dose: 1 tab Ondansetron HCl (Zofran Odt) 4 mg PO Q4H PRN PRN Reason: nausea, able to take PO Ondansetron HCl (Zofran) 4 mg IVPUSH Q4H PRN PRN Reason: Nausea Oxycodone/Acetaminophen (Percocet 325-5 Mg) 2 tab PO Q4H PRN PRN Reason: Pain Last Admin: 05/20/19 09:28 Dose: 2 tab Admin: 05/20/19 05:01 Dose: 2 tab Admin: 05/20/19 00:58 Dose: 2 tab Admin: 05/19/19 20:36 Dose: 2 tab Admin: 05/19/19 16:38 Dose: 2 tab Admin: 05/19/19 12:38 Dose: 2 tab Admin: 05/19/19 08:26 Dose: 2 tab Scopolamine (Transderm-Scop) 1.5 mg TRDERM Q72H PRN PRN Reason: Nausea - Assessment Assessment (Free Text/Narrative):: ONELIA output appears bright red. May have some bleeding from gallbladder fossa again. Vitally stable. One unit pRBC going in right now. When this is finished patient will have stat H/H as well as INR/PT/PTT. Never given heparin/lovenox so unlikely to have JAYSHREE. Plt count 200 today. Will monitor closely.
[2019-05-21] MEDS: Acetaminophen/oxyCODONE 325-5 MG Tab PO PRN ×4 (04:42→20:15)
[2019-05-21] MEDS: Cyclobenzaprine 5 MG Tab PO SCH ×3 (07:14→21:48)
[2019-05-21] MEDS: Multivitamin Tab PO SCH (09:41)
--- NOTE | 2019-05-21 12:54 | PCM.SURGPN ---
- General Info Date of Service: 05/21/19 Date of Surgery/Procedure: 05/18/19 POD#: 3 Functional Status: Reports: Pain Controlled, Tolerating Diet, Ambulating, Urinating - Review of Systems General: Reports: No Symptoms HEENT: Reports: No Symptoms Pulmonary: Reports: No Symptoms Cardiovascular: Reports: No Symptoms Gastrointestinal: Reports: No Symptoms Genitourinary: Reports: No Symptoms - Patient Data Vitals - Most Recent: Last Vital Signs Temp 35.9 C 05/21/19 08:00 Pulse 91 05/21/19 08:00 Resp 16 05/21/19 08:00 BP 112/61 05/21/19 08:00 Pulse Ox 95 05/21/19 08:00 Weight - Most Recent: 92.079 kg I&O - Last 24 Hours: Intake & Output 05/20/19 05/21/19 05/21/19 22:59 06:59 14:59 Intake Total 618 900 Output Total 1590 2620 Balance -972 -1720 Lab Results Last 24 Hrs: Laboratory Results - last 24 hr 05/18/19 05/20/19 05/20/19 Range/Units 19:23 13:29 13:29 WBC (4.0-11.0) K/uL RBC (4.30-5.90) M/uL Hgb 8.7 L (12.0-16.0) g/dL Hct 27.5 L (36.0-46.0) % MCV (80.0-98.0) fL MCH (27.0-32.0) pg MCHC (31.0-37.0) g/dL RDW Std Deviation (28.0-62.0) fl RDW Coeff of Donita (11.0-15.0) % Plt Count (150-400) K/uL MPV (7.40-12.00) fL Nucleated RBC % /100WBC Nucleated RBCs # K/uL INR APTT 29.6 (18.6-31.3) SEC Blood Type O POSITIVE Antibody Screen NEGATIVE Crossmatch See Detail 05/20/19 05/20/19 05/21/19 Range/Units 13:29 18:45 06:00 WBC 10.33 (4.0-11.0) K/uL RBC 3.59 L (4.30-5.90) M/uL Hgb 9.9 L 9.3 L (12.0-16.0) g/dL Hct 30.9 L 28.9 L (36.0-46.0) % MCV 80.5 (80.0-98.0) fL MCH 25.9 L (27.0-32.0) pg MCHC 32.2 (31.0-37.0) g/dL RDW Std Deviation 47.1 (28.0-62.0) fl RDW Coeff of Donita 16 H (11.0-15.0) % Plt Count 207 (150-400) K/uL MPV 8.80 (7.40-12.00) fL Nucleated RBC % 0.4 /100WBC Nucleated RBCs # 0 K/uL INR 1.16 APTT (18.6-31.3) SEC Blood Type Antibody Screen Crossmatch 05/21/19 Range/Units 12:22 WBC (4.0-11.0) K/uL RBC (4.30-5.90) M/uL Hgb 10.4 L (12.0-16.0) g/dL Hct 32.6 L (36.0-46.0) % MCV (80.0-98.0) fL MCH (27.0-32.0) pg MCHC (31.0-37.0) g/dL RDW Std Deviation (28.0-62.0) fl RDW Coeff of Donita (11.0-15.0) % Plt Count (150-400) K/uL MPV (7.40-12.00) fL Nucleated RBC % /100WBC Nucleated RBCs # K/uL INR APTT (18.6-31.3) SEC Blood Type Antibody Screen Crossmatch Med Orders - Current: Current Medications Cyclobenzaprine HCl (Flexeril) 5 mg PO TID [facility] Last Admin: 05/21/19 07:14 Dose: 5 mg Fentanyl (Sublimaze) 50 - 100 mcg IVPUSH Q5M PRN PRN Reason: Pain (severe 7-10) Morphine Sulfate (Morphine) 2 mg IVPUSH Q1H PRN PRN Reason: Abdominal Pain Last Admin: 05/19/19 16:09 Dose: 2 mg Multivitamins/Minerals/Vitamin C (Tab-A-Roverto) 1 tab PO DAILY [facility] Last Admin: 05/21/19 09:41 Dose: 1 tab Ondansetron HCl (Zofran Odt) 4 mg PO Q4H PRN PRN Reason: nausea, able to take PO Ondansetron HCl (Zofran) 4 mg IVPUSH Q4H PRN PRN Reason: Nausea Oxycodone/Acetaminophen (Percocet 325-5 Mg) 2 tab PO Q4H PRN PRN Reason: Pain Last Admin: 05/21/19 09:41 Dose: 2 tab Scopolamine (Transderm-Scop) 1.5 mg TRDERM Q72H PRN PRN Reason: Nausea Discontinued Medications Acetaminophen (Tylenol) 650 mg PO Q4H PRN PRN Reason: Pain (Mild 1-3)/fever Hydrocodone Bitart/Acetaminophen ([place] 325-5 Mg) 1 tab PO Q4H PRN PRN Reason: Pain (moderate 4-6) Bupivacaine HCl (Marcaine 0.5%) Confirm Administered Dose 30 ml .ROUTE .STK-MED ONE Stop: 05/18/19 12:33 Bupivacaine HCl (Marcaine 0.5%) Confirm Administered Dose 120 ml .ROUTE .STK- MED ONE Stop: 05/18/19 14:33 Cefazolin Sodium (Ancef) Confirm Administered Dose 2 gm .ROUTE .STK-MED ONE Stop: 05/18/19 13:14 Fentanyl (Sublimaze) Confirm Administered Dose 250 mcg .ROUTE .STK-MED ONE Stop: 05/18/19 12:00 Fentanyl (Sublimaze) Confirm Administered Dose 250 mcg .ROUTE .STK-MED ONE Stop: 05/18/19 13:36 Glycopyrrolate (Robinul) Confirm Administered Dose 0.8 mg .ROUTE .STK-MED ONE Stop: 05/18/19 11:58 Hydromorphone HCl (Dilaudid) Confirm Administered Dose 2 mg .ROUTE .STK-MED ONE Stop: 05/18/19 14:31 Hydromorphone HCl (Dilaudid) 2 mg IVPUSH ONETIME ONE Stop: 05/18/19 15:26 Last Admin: 05/18/19 16:28 Dose: 1 mg Sodium Chloride (Normal Saline) 1,000 mls @ 125 mls/hr IV Q8H [facility] Last Admin: 05/17/19 18:05 Dose: Not Given Potassium Chloride/Sodium Chloride (Normal Saline With 40 Meq Kcl) 1,000 mls @ 125 mls/hr IV CONTINUOUS [facility] Potassium Chloride/Sodium Chloride (Normal Saline With 40 Meq Kcl) 1,000 mls @ 125 mls/hr IV ONETIME ONE Stop: 05/18/19 01:09 Last Admin: 05/17/19 17:16 Dose: 125 mls/hr Sodium Chloride (Normal Saline) 1,000 mls @ 125 mls/hr IV Q8H [facility] Last Admin: 05/18/19 17:39 Dose: Not Given Sodium Chloride (Normal Saline) Confirm Administered Dose 20 mls @ as directed .ROUTE .STK-MED ONE Stop: 05/18/19 13:14 Acetaminophen (Ofirmev) Confirm Administered Dose 100 mls @ as directed IV .STK- MED ONE Stop: 05/18/19 15:18 Lactated Ringer's (Ringers, Lactated) 1,000 mls @ 125 mls/hr IV Q8H [facility] Last Admin: 05/18/19 17:19 Dose: 125 mls/hr Lactated Ringer's (Ringers, Lactated) 1,000 mls @ 125 mls/hr IV ASDIRECTED [facility] Last Admin: 05/20/19 02:15 Dose: 125 mls/hr Lactated Ringer's (Ringers, Lactated) 1,000 mls @ 999 mls/hr IV .BOLUS ONE Stop: 05/18/19 19:30 Last Admin: 05/18/19 18:38 Dose: 999 mls/hr Lactated Ringer's (Ringers, Lactated) 500 mls @ 500 mls/hr IV .BOLUS ONE Stop: 05/18/19 21:10 Last Admin: 05/18/19 21:01 Dose: 500 mls/hr Ketorolac Tromethamine (Toradol) Confirm Administered Dose 30 mg .ROUTE .STK- MED ONE Stop: 05/18/19 11:58 Labetalol HCl (Normodyne) Confirm Administered Dose 100 mg .ROUTE .STK-MED ONE Stop: 05/18/19 14:09 Lidocaine (Xylocaine-Mpf 2%) Confirm Administered Dose 5 ml .ROUTE .STK-MED ONE Stop: 05/18/19 11:58 Midazolam HCl (Versed 1 Mg/Ml) Confirm Administered Dose 2 mg .ROUTE .STK-MED ONE Stop: 05/18/19 12:01 Morphine Sulfate (Morphine) 2 mg IVPUSH Q2H PRN PRN Reason: Pain (severe 7-10) Stop: 05/18/19 16:54 Morphine Sulfate (Morphine) 2 mg IVPUSH Q1H PRN PRN Reason: Pain (severe 7-10) Stop: 05/18/19 16:54 Neostigmine Methylsulfate (Neostigmine) Confirm Administered Dose 5 mg .ROUTE .STK-MED ONE Stop: 05/18/19 11:58 Ondansetron HCl (Zofran) Confirm Administered Dose 4 mg .ROUTE .STK-MED ONE Stop: 05/18/19 11:58 Propofol (Diprivan 20 Ml) Confirm Administered Dose 200 mg .ROUTE .STK-MED ONE Stop: 05/18/19 12:00 Rocuronium [place] (Zemuron) Confirm Administered Dose 100 mg .ROUTE .STK-MED ONE Stop: 05/18/19 11:58 Sugammadex Sodium (Bridion) Confirm Administered Dose 200 mg .ROUTE .STK-MED ONE Stop: 05/18/19 15:18 - Exam Wound/Incisions: Healing Well General: Alert, Oriented HEENT: Pupils Equal, Pupils Reactive Lungs: Normal Respiratory Effort Cardiovascular: Regular Rate GI/Abdominal Exam: Soft, Non-Tender, No Distention, No Mass, Other ( serosanguinous drain output ) Skin: Warm, Dry, Intact - Problem List & Annotations (1) Abdominal pain SNOMED Code(s): 00588893 Code(s): R10.9 - UNSPECIFIED ABDOMINAL PAIN Status: Acute Current Visit: No (2) History of gallstones SNOMED Code(s): 048015583 Code(s): Z87.19 - PERSONAL HISTORY OF OTHER DISEASES OF THE DIGESTIVE SYSTEM Status: Acute Current Visit: No - Problem List Review Problem List Initiated/Reviewed/Updated: Yes - My Orders Last 24 Hours: Active Orders 24 hr Category Date Time Status Remove Timmons Catheter [Urinary Catheter Removal] [RC] Care 05/21/19 08:02 Active Per Unit Routine CBC W/O DIFF,HEMOGRAM [HEME] AM Lab 05/22/19 05:11 Ordered CBC W/O DIFF,HEMOGRAM [HEME] AM Lab 05/23/19 05:11 Ordered Medication Orders Cyclobenzaprine HCl (Flexeril) 5 mg PO TID [facility] Last Admin: 05/21/19 07:14 Dose: 5 mg Admin: 05/20/19 21:15 Dose: 5 mg Admin: 05/20/19 14:10 Dose: 5 mg Admin: 05/20/19 05:01 Dose: 5 mg Admin: 05/19/19 21:05 Dose: 5 mg Admin: 05/19/19 13:24 Dose: 5 mg Admin: 05/19/19 05:19 Dose: 5 mg Admin: 05/18/19 22:03 Dose: 5 mg Fentanyl (Sublimaze) 50 - 100 mcg IVPUSH Q5M PRN PRN Reason: Pain (severe 7-10) Morphine Sulfate (Morphine) 2 mg IVPUSH Q1H PRN PRN Reason: Abdominal Pain Last Admin: 05/19/19 16:09 Dose: 2 mg Admin: 05/19/19 12:09 Dose: 2 mg Admin: 05/19/19 10:57 Dose: 2 mg Admin: 05/19/19 07:34 Dose: 2 mg Admin: 05/19/19 05:21 Dose: 2 mg Admin: 05/19/19 03:03 Dose: 2 mg Admin: 05/18/19 23:58 Dose: 2 mg Multivitamins/Minerals/Vitamin C (Tab-A-Roverto) 1 tab PO DAILY [facility] Last Admin: 05/21/19 09:41 Dose: 1 tab Admin: 05/20/19 08:21 Dose: 1 tab Ondansetron HCl (Zofran Odt) 4 mg PO Q4H PRN PRN Reason: nausea, able to take PO Ondansetron HCl (Zofran) 4 mg IVPUSH Q4H PRN PRN Reason: Nausea Oxycodone/Acetaminophen (Percocet 325-5 Mg) 2 tab PO Q4H PRN PRN Reason: Pain Last Admin: 05/21/19 09:41 Dose: 2 tab Admin: 05/21/19 04:42 Dose: 2 tab Admin: 05/20/19 21:19 Dose: 2 tab Admin: 05/20/19 17:19 Dose: 2 tab Admin: 05/20/19 09:28 Dose: 2 tab Admin: 05/20/19 05:01 Dose: 2 tab Admin: 05/20/19 00:58 Dose: 2 tab Admin: 05/19/19 20:36 Dose: 2 tab Admin: 05/19/19 16:38 Dose: 2 tab Admin: 05/19/19 12:38 Dose: 2 tab Admin: 05/19/19 08:26 Dose: 2 tab Scopolamine (Transderm-Scop) 1.5 mg TRDERM Q72H PRN PRN Reason: Nausea - Plan Plan (Free Text/Narrative):: The patient received 2 units of blood yesterday and responded appropriately. Her drain output has been scant ever since. Her hemoglobin has stayed relatively stable over the last 3 checks. The remainder of her labs are normal. We'll remove the Timmons catheter today. I encouraged her to be up and walking today. If her drain output stays stable and her hemoglobin in the morning is stable as well, will discharge at that time.
[2019-05-22] MEDS: Cyclobenzaprine 5 MG Tab PO SCH (05:44)
[2019-05-22] MEDS: Acetaminophen/oxyCODONE 325-5 MG Tab PO PRN (07:15)
[2019-05-22 07:54] VITALS: BP 114/57; PULSE 93
--- NOTE | 2019-05-22 08:00 | PCM.DCSUM1 ---
Discharge Summary - Hospital Course Free Text/Narrative:: Patient is a 23 year old female who presented with post prandial abdominal pain. She had a history of cholelithiasis. US showed no evidence of cholecystitis but she had an elevated alk phos. She was admitted to the medicine team. She was given IVF and kept NPO. She underwent a cholecystectomy. She had severe inflammation around the proximal gallbladder which required conversion from laparoscopic to open. She had significant ONELIA output after surgery and became mildly hypotensive and tachycardic. This resolved with 2 units of blood. The bleeding had subsided the next morning. She sat up in bed and was ambulating but had another small episode of bleeding on POD #2 and required another 2 units of blood. Over the last 24 hours she has been eating a regular diet, ambulating, urinating without difficulty and her drain has had scant output. Her hemoglobin stayed stable. WHen she was admitted her BUN/Cr were slightly elevated. They have recovered. She is ready for discharge. - Discharge Data Discharge Date: 05/22/19 Discharge Disposition: Home, Self-Care 01 Condition: Good - Discharge Diagnosis/Problem(s) (1) Abdominal pain SNOMED Code(s): 57887184 ICD Code: R10.9 - UNSPECIFIED ABDOMINAL PAIN Status: Acute Current Visit : No (2) History of gallstones SNOMED Code(s): 646635827 ICD Code: Z87.19 - PERSONAL HISTORY OF OTHER DISEASES OF THE DIGESTIVE SYSTEM Status: Acute Current Visit: No - Patient Summary/Data Operative Procedure(s) Performed: Laparoscopic converted to open cholecystectomy Consults: Consultations 05/17/19 17:08 Consult to Physician [CONS] Routine - Patient Instructions Diet: Regular Diet as Tolerated Activity: No Lifting Over 20 Pounds (for six weeks after surgery ), Rest and Relax Today Activity, Other: No work for 2 weeks Driving: Do Not Drive (for one week ) Showering/Bathing: May Shower, No Tub Bathing/Swimming (for 2 weeks ) Notify Provider of: Fever, Increased Pain, Swelling and Redness, Drainage, Nausea and/or Vomiting - Discharge Plan *PRESCRIPTION DRUG MONITORING PROGRAM REVIEWED*: Yes *COPY OF PRESCRIPTION DRUG MONITORING REPORT IN PATIENT CONSUELO: Yes Home Medications: Home Meds . [No Known Home Meds] 10/20/15 [History] Patient Handouts: Open Cholecystectomy, Care After Referrals: Lizbeth Young MD [Physician] - 05/26/19 1:00 pm Amarilys Fernandez PA [Physician Remote Sensing Analyst] - 05/27/19 9:00 am - Discharge Summary/Plan Comment DC Time >30 min.: No - General Info Functional Status: Reports: Pain Controlled, Tolerating Diet, Ambulating - Review of Systems General: Reports: No Symptoms HEENT: Reports: No Symptoms Pulmonary: Reports: No Symptoms Cardiovascular: Reports: No Symptoms Gastrointestinal: Reports: No Symptoms Genitourinary: Reports: No Symptoms - Patient Data Vitals - Most Recent: Last Vital Signs Temp 37.4 C 05/22/19 07:20 Pulse 93 05/22/19 07:20 Resp 18 05/22/19 07:20 BP 114/57 L 05/22/19 07:20 Pulse Ox 96 05/22/19 07:20 Weight - Most Recent: 92.079 kg I&O - Last 24 hours: Intake & Output 05/21/19 05/22/19 05/22/19 22:59 06:59 14:59 Intake Total 1000 800 Output Total 1610 609 Balance -610 191 Lab Results - Last 24 hrs: Laboratory Results - last 24 hr 05/21/19 05/22/19 Range/Units 12:22 06:03 WBC 8.74 (4.0-11.0) K/uL RBC 3.49 L (4.30-5.90) M/uL Hgb 10.4 L 9.2 L (12.0-16.0) g/dL Hct 32.6 L 28.6 L (36.0-46.0) % MCV 81.9 (80.0-98.0) fL MCH 26.4 L (27.0-32.0) pg MCHC 32.2 (31.0-37.0) g/dL RDW Std Deviation 44.7 (28.0-62.0) fl RDW Coeff of Donita 16 H (11.0-15.0) % Plt Count 258 (150-400) K/uL MPV 9.30 (7.40-12.00) fL Med Orders - Current: Current Medications Cyclobenzaprine HCl (Flexeril) 5 mg PO TID [facility] Last Admin: 05/22/19 05:44 Dose: 5 mg Fentanyl (Sublimaze) 50 - 100 mcg IVPUSH Q5M PRN PRN Reason: Pain (severe 7-10) Morphine Sulfate (Morphine) 2 mg IVPUSH Q1H PRN PRN Reason: Abdominal Pain Last Admin: 05/19/19 16:09 Dose: 2 mg Multivitamins/Minerals/Vitamin C (Tab-A-Roverto) 1 tab PO DAILY [facility] Last Admin: 05/21/19 09:41 Dose: 1 tab Ondansetron HCl (Zofran Odt) 4 mg PO Q4H PRN PRN Reason: nausea, able to take PO Ondansetron HCl (Zofran) 4 mg IVPUSH Q4H PRN PRN Reason: Nausea Oxycodone/Acetaminophen (Percocet 325-5 Mg) 2 tab PO Q4H PRN PRN Reason: Pain Last Admin: 05/22/19 07:15 Dose: 2 tab Scopolamine (Transderm-Scop) 1.5 mg TRDERM Q72H PRN PRN Reason: Nausea Discontinued Medications Acetaminophen (Tylenol) 650 mg PO Q4H PRN PRN Reason: Pain (Mild 1-3)/fever Hydrocodone Bitart/Acetaminophen ([place] 325-5 Mg) 1 tab PO Q4H PRN PRN Reason: Pain (moderate 4-6) Bupivacaine HCl (Marcaine 0.5%) Confirm Administered Dose 30 ml .ROUTE .STK-MED ONE Stop: 05/18/19 12:33 Bupivacaine HCl (Marcaine 0.5%) Confirm Administered Dose 120 ml .ROUTE .STK- MED ONE Stop: 05/18/19 14:33 Cefazolin Sodium (Ancef) Confirm Administered Dose 2 gm .ROUTE .STK-MED ONE Stop: 05/18/19 13:14 Fentanyl (Sublimaze) Confirm Administered Dose 250 mcg .ROUTE .STK-MED ONE Stop: 05/18/19 12:00 Fentanyl (Sublimaze) Confirm Administered Dose 250 mcg .ROUTE .STK-MED ONE Stop: 05/18/19 13:36 Glycopyrrolate (Robinul) Confirm Administered Dose 0.8 mg .ROUTE .STK-MED ONE Stop: 05/18/19 11:58 Hydromorphone HCl (Dilaudid) Confirm Administered Dose 2 mg .ROUTE .STK-MED ONE Stop: 05/18/19 14:31 Hydromorphone HCl (Dilaudid) 2 mg IVPUSH ONETIME ONE Stop: 05/18/19 15:26 Last Admin: 05/18/19 16:28 Dose: 1 mg Sodium Chloride (Normal Saline) 1,000 mls @ 125 mls/hr IV Q8H [facility] Last Admin: 05/17/19 18:05 Dose: Not Given Potassium Chloride/Sodium Chloride (Normal Saline With 40 Meq Kcl) 1,000 mls @ 125 mls/hr IV CONTINUOUS [facility] Potassium Chloride/Sodium Chloride (Normal Saline With 40 Meq Kcl) 1,000 mls @ 125 mls/hr IV ONETIME ONE Stop: 05/18/19 01:09 Last Admin: 05/17/19 17:16 Dose: 125 mls/hr Sodium Chloride (Normal Saline) 1,000 mls @ 125 mls/hr IV Q8H [facility] Last Admin: 05/18/19 17:39 Dose: Not Given Sodium Chloride (Normal Saline) Confirm Administered Dose 20 mls @ as directed .ROUTE .STK-MED ONE Stop: 05/18/19 13:14 Acetaminophen (Ofirmev) Confirm Administered Dose 100 mls @ as directed IV .STK- MED ONE Stop: 05/18/19 15:18 Lactated Ringer's (Ringers, Lactated) 1,000 mls @ 125 mls/hr IV Q8H [facility] Last Admin: 05/18/19 17:19 Dose: 125 mls/hr Lactated Ringer's (Ringers, Lactated) 1,000 mls @ 125 mls/hr IV ASDIRECTED [facility] Last Admin: 05/20/19 02:15 Dose: 125 mls/hr Lactated Ringer's (Ringers, Lactated) 1,000 mls @ 999 mls/hr IV .BOLUS ONE Stop: 05/18/19 19:30 Last Admin: 05/18/19 18:38 Dose: 999 mls/hr Lactated Ringer's (Ringers, Lactated) 500 mls @ 500 mls/hr IV .BOLUS ONE Stop: 05/18/19 21:10 Last Admin: 05/18/19 21:01 Dose: 500 mls/hr Ketorolac Tromethamine (Toradol) Confirm Administered Dose 30 mg .ROUTE .STK- MED ONE Stop: 05/18/19 11:58 Labetalol HCl (Normodyne) Confirm Administered Dose 100 mg .ROUTE .STK-MED ONE Stop: 05/18/19 14:09 Lidocaine (Xylocaine-Mpf 2%) Confirm Administered Dose 5 ml .ROUTE .STK-MED ONE Stop: 05/18/19 11:58 Midazolam HCl (Versed 1 Mg/Ml) Confirm Administered Dose 2 mg .ROUTE .STK-MED ONE Stop: 05/18/19 12:01 Morphine Sulfate (Morphine) 2 mg IVPUSH Q2H PRN PRN Reason: Pain (severe 7-10) Stop: 05/18/19 16:54 Morphine Sulfate (Morphine) 2 mg IVPUSH Q1H PRN PRN Reason: Pain (severe 7-10) Stop: 05/18/19 16:54 Neostigmine Methylsulfate (Neostigmine) Confirm Administered Dose 5 mg .ROUTE .STK-MED ONE Stop: 05/18/19 11:58 Ondansetron HCl (Zofran) Confirm Administered Dose 4 mg .ROUTE .STK-MED ONE Stop: 05/18/19 11:58 Propofol (Diprivan 20 Ml) Confirm Administered Dose 200 mg .ROUTE .STK-MED ONE Stop: 05/18/19 12:00 Rocuronium [place] (Zemuron) Confirm Administered Dose 100 mg .ROUTE .STK-MED ONE Stop: 05/18/19 11:58 Sugammadex Sodium (Bridion) Confirm Administered Dose 200 mg .ROUTE .STK-MED ONE Stop: 05/18/19 15:18 - Exam General: Reports: Alert, Oriented, Cooperative HEENT: Reports: Pupils Equal, Pupils Reactive Neck: Reports: Supple Lungs: Reports: Normal Respiratory Effort Cardiovascular: Reports: Regular Rate GI/Abdominal Exam: Soft, Non-Tender, No Distention, No Mass, Other ( serosanguinous drain output ) Back Exam: Reports: Normal Inspection Extremities: Normal Inspection Skin: Reports: Warm, Dry, Intact Wound/Incisions: Reports: Healing Well
[2019-05-22] MEDS: Multivitamin Tab PO SCH (08:06)
== END 2019-05-22 11:40 | disposition home or self-care (01) | DRG 769 ==
LOC: MW.CHFP 15:26 → MW.MS 16:02 → MW.CHFP 16:35 → MW.MS 16:36 → OBSVTOIN 05-18 14:45 → MW.MS 05-18 14:45
PROVIDERS: ADMIT Internal Medicine; ATTEND Surgery
PROC: 0FT40ZZ Resection of Gallbladder, Open Approach (ICD-10-PCS; principal; 2019-05-18)
PROC: 0FJ44ZZ Inspection of Gallbladder, Percutaneous Endoscopic Approach (ICD-10-PCS; 2019-05-18)
PROC: 30233N1 Transfusion of Nonautologous Red Blood Cells into Peripheral Vein, Percutaneous Approach (ICD-10-PCS; 2019-05-20)
DX: O99.63 Diseases of the digestive system complicating the puerperium (principal); K80.00 Calculus of gallbladder with acute cholecystitis without obstruction; D62 Acute posthemorrhagic anemia; O90.4 Postpartum acute kidney failure; E87.6 Hypokalemia; O99.89 Other specified diseases and conditions complicating pregnancy, childbirth and the puerperium; N17.9 Acute kidney failure, unspecified; O90.81 Anemia of the puerperium; O99.215 Obesity complicating the puerperium; E66.9 Obesity, unspecified; O99.285 Endocrine, nutritional and metabolic diseases complicating the puerperium; E86.0 Dehydration; Z87.891 Personal history of nicotine dependence
CPT/HCPCS: 36415 ×2; 47600; 76705; 80053 ×2; 81025; 82150; 83690; 85025 ×2; 85610; 96361; 96374; G0378 ×2; J0690; J1170 ×2; J1885; J2001; J2250; J2405; J2704; J3010 ×2; J3480; J3490 ×4; J7040 ×2; 00790; 36430; 85014; 85018; 85027; 85730; 86850; 86900; 86901; 86920; 86921; 86922; 88304; A9270-GY; J0131; J2270; J7120; P9016

== ENCOUNTER 2019-05-23 12:29 | Emergency (ER) | payer MEDICAID, OTHER, SELFPAY ==
[2019-05-23] MEDS ORDERED: Morphine 2 MG/ML Syringe IVPUSH ONE (13:08)
[2019-05-23] MEDS ORDERED: Ondansetron 4 MG/2 ML SDV IVPUSH ONE (13:08)
[2019-05-23] MEDS ORDERED: Sodium Chloride 0.9% 1,000 ML IV ONE (13:08)
--- NOTE | 2019-05-23 13:33 | EDM.PDOC ---
ED HPI GENERAL MEDICAL PROBLEM - General Chief Complaint: Abdominal Pain Stated Complaint: stomach pain Time Seen by Provider: 05/23/19 12:35 Source of Information: Reports: Patient History Limitations: Reports: No Limitations - History of Present Illness INITIAL COMMENTS - FREE TEXT/NARRATIVE: HISTORY AND PHYSICAL: History of present illness: Patient is a 23-year-old female, 5 days post op, who presents to the ED today for worsening abdominal pain following a cholecystectomy. Patient had surgery on 05/18/19 and had complications during surgery in which a laparoscopic cholecystectomy became an open cholecystectomy. Her hospital course was complicated by bleeding and in total received 4 units of blood while in the hospital. Patient was discharged yesterday and was ambulating, eating, and drinking appropriately and properly discharged to home. Patient returns now to the ED with worsening abdominal pain that started his morning. She rates her pain a 10 out of 10 and states that she has been taking her pain medication which does not seem to be helping her abdominal pain. Patient states she has the pain at the incision site but now her whole abdomen is in pain. Patient states she's had limited eating and drinking today due to this pain. Patient does express some nausea but states she has not vomited. Patient states she's been urinating without difficulty but has not had a bowel movement since the surgery. She states she's been taking the bowel regimen that Dr. Young has given her. Patient denies any other symptoms or concerns at this time. Patient denies fever, chills, chest pain, shortness of breath, or cough. Denies headache, neck stiff ness, change in vision, syncope, or near syncope. Denies vomiting, diarrhea, constipation, or dysuria. Has not noted any blood in urine. Review of systems: As per history of present illness and below otherwise all systems reviewed and negative. Past medical history: As per history of present illness and as reviewed below otherwise noncontributory. Surgical history: As per history of present illness and as reviewed below otherwise noncontributory. Social history: See social history for further information Family history: As per history of present illness and as reviewed below otherwise noncontributory. Physical exam: General: Patient is alert, oriented, and in no acute distress. Patient sitting on exam table and does appear uncomfortable. HEENT: Atraumatic, normocephalic, pupils equal and reactive bilaterally, negative for conjunctival pallor or scleral icterus, mucous membranes dry, TMs normal bilaterally, throat clear, neck supple, nontender, trachea midline. No drooling or trismus noted. No meningeal signs. No hot potato voice noted. Lungs: Clear to auscultation, breath sounds equal bilaterally, chest nontender. Heart: S1S2, regular rate and rhythm without overt murmur Abdomen: Soft, nondistended. Exam of abdomen is limited due to pain. Patient has generalized severe tenderness with palpation of the abdomen and does cry with palpation of the generalized abdomen. Scarring is consistent with recent surgery. There are klaus intact along recent incision sites which have no erythema and appear to be healing appropriately. There is a drain intact on the right side of the abdomen which is draining a small amount of dark red drainage. There is no erythema surrounding the insertion of the drain. Negative for masses or hepatosplenomegaly. Negative for costovertebral tenderness. Pelvis: Stable nontender. Genitourinary: Deferred. Rectal: Deferred. Skin: Intact, warm, dry. No lesions or rashes noted. Extremities: Atraumatic, negative for cords or calf pain. Neurovascular unremarkable. Neuro: Awake, alert, oriented. Cranial nerves II through XII unremarkable. Cerebellum unremarkable. Motor and sensory unremarkable throughout. Exam nonfocal. Notes: Dr. Ashley verbally involved in patient care. Dr. Young, general surgery who performed patients surgery, consulted on patient. Per Dr. Young's recommendation, the moderate amount of blood in patients abdomen would be expected due to her postop complications / her hospital course. Because her H&H is stable and she is vitally stable, Dr. Young suggests transfer to [facility] for ERCP due to the common bile duct stone. [facility] consult on patient and spoke to Dr. Fernandez. Accepting of transfer and EMS arranged. Voices understanding and is agreeable to plan of care. Denies any further questions or concerns at this time. Diagnostics: CBC, CMP, UA, Uhcg, Lipase, Lactic acid, Blood culture x 2, Abd/Pelvic w/ contrast Therapeutics: NS, Morphine, Zofran (Did offer additional pain management but patient declines) Impression: Common bile duct stone Postop complication / bleed Plan: 1. Transfer to [place] to Dr. Fernandez at [facility] via EMS Definitive disposition and diagnosis as appropriate pending reevaluation and review of above. lower abd Pain Score (Numeric/FACES): 8 - Related Data Allergies Allergy/AdvReac Type Severity Reaction Status Date / Time No Known Allergies Allergy Verified 05/17/19 18:41 Home Meds: Home Meds Cyclobenzaprine [Flexeril] mg PO DAILY 05/23/19 [History] Docusate Sodium/Sennosides [Senokot-S] each PO BEDTIME 05/23/19 [History] oxyCODONE ER [OxyCONTIN] mg PO 05/23/19 [History] Past Medical History - Past Health History Medical/Surgical History: Denies Medical/Surgical History HEENT History: Reports: None Cardiovascular History: Reports: None Respiratory History: Reports: None Gastrointestinal History: Reports: Other (See Below) Other Gastrointestinal History: patient states "I have gall bladder pains and will probably have it removed after " Genitourinary History: Reports: None MEDICAL LAB ASSISTANT History: Reports: Other MEDICAL LAB ASSISTANT History: LMP 07/10/2018. EDC 04/14/2019 Musculoskeletal History: Reports: None Neurological History: Reports: Migraines Psychiatric History: Reports: None Endocrine/Metabolic History: Reports: Diabetes, Gestational, Obesity/BMI 30+, Other (See Below) Other Endocrine/Metabolic History: Patient stated she has no more gestational diabetes Hematologic History: Reports: None Immunologic History: Reports: None Oncologic (Cancer) History: Reports: None Dermatologic History: Reports: None - Infectious Disease History Infectious Disease History: Reports: None - Past Surgical History Head Surgeries/Procedures: Reports: None Cardiovascular Surgical History: Reports: None Respiratory Surgical History: Reports: None GI Surgical History: Reports: Cholecystectomy Endocrine Surgical History: Reports: None Musculoskeletal Surgical History: Reports: Other (See Below) Other Musculoskeletal Surgeries/Procedures:: cyst removal on left leg (calf) Oncologic Surgical History: Reports: None Social & Family History - Family History Family Medical History: Noncontributory : Reports: Renal Calculus OBGYN: Reports: Neurological: Reports: CVA Endocrine/Metabolic: Reports: Diabetes, Type I, Diabetes, type II - Tobacco Use Smoking Status *Q: Never Smoker - Caffeine Use Caffeine Use: Reports: Tea - Recreational Drug Use Recreational Drug Use: No ED ROS GENERAL - Review of Systems Review Of Systems: ROS reveals no pertinent complaints other than HPI. ED EXAM, GENERAL - Physical Exam Exam: See Below (See dictation) Course - Vital Signs Last Recorded V/S: Last Vital Signs Temp 36.6 C 05/23/19 12:54 Pulse 87 05/23/19 16:39 Resp 20 05/23/19 16:39 BP 109/61 05/23/19 16:39 Pulse Ox 100 05/23/19 16:39 - Orders/Labs/Meds Orders: Active Orders 24 hr Category Date Time Status CULTURE BLOOD [BC] Stat Lab 05/23/19 14:03 Received CULTURE BLOOD [BC] Stat Lab 05/23/19 14:18 Received CULTURE URINE [RM] Stat Lab 05/23/19 15:00 Received Sodium Chloride 0.9% [Normal Saline] 1,000 ml Med 05/23/19 16:15 Active IV ASDIRECTED Blood Culture x2 Reflex Set [OM.PC] Stat Oth 05/23/19 13:33 Ordered Medication Orders Sodium Chloride (Normal Saline) 1,000 mls @ 125 mls/hr IV ASDIRECTED CHAPARRITA Last Admin: 05/23/19 16:36 Dose: 125 mls/hr Labs: Laboratory Tests 05/23/19 05/23/19 05/23/19 Range/Units 13:38 13:38 13:38 WBC 10.15 (4.0-11.0) K/uL RBC 4.06 L (4.30-5.90) M/uL Hgb 10.7 L (12.0-16.0) g/dL Hct 32.8 L (36.0-46.0) % MCV 80.8 (80.0-98.0) fL MCH 26.4 L (27.0-32.0) pg MCHC 32.6 (31.0-37.0) g/dL RDW Std Deviation 45.4 (28.0-62.0) fl RDW Coeff of Donita 16 H (11.0-15.0) % Plt Count 338 (150-400) K/uL MPV 8.90 (7.40-12.00) fL Neut % (Auto) 74.9 (48.0-80.0) % Lymph % (Auto) 16.8 (16.0-40.0) % [place] % (Auto) 7.0 (0.0-15.0) % Eos % (Auto) 1.1 (0.0-7.0) % Baso % (Auto) 0.2 (0.0-1.5) % Neut # (Auto) 7.6 H (1.4-5.7) K/uL Lymph # (Auto) 1.7 (0.6-2.4) K/uL [place] # (Auto) 0.7 (0.0-0.8) K/uL Eos # (Auto) 0.1 (0.0-0.7) K/uL Baso # (Auto) 0.0 (0.0-0.1) K/uL Lactate 1.3 (0.20-2.00) mmol/L Sodium 141 (136-145) mmol/L Potassium 3.5 (3.5-5.1) mmol/L Chloride 105 (98-107) mmol/L Carbon Dioxide 24.9 (21.0-32.0) mmol/L BUN 9 (7.0-18.0) mg/dL Creatinine 0.8 (0.6-1.0) mg/dL Est Cr Clr Drug Dosing 101.51 mL/min Estimated GFR (MDRD) > 60.0 ml/min Glucose 105 (74-106) mg/dL Calcium 9.3 (8.5-10.1) mg/dL Total Bilirubin 1.2 H (0.2-1.0) mg/dL AST 89 H (15-37) IU/L ALT 134 H (14-63) IU/L Alkaline Phosphatase 471 H (46-116) U/L Total Protein 7.3 (6.4-8.2) g/dL Albumin 3.1 L (3.4-5.0) g/dL Globulin 4.2 H (2.6-4.0) g/dL Albumin/Globulin Ratio 0.7 L (0.9-1.6) Lipase 71 L (73-393) U/L HCG, Qual (NEG) Urine Color Urine Appearance Urine pH (5.0-8.0) Ur Specific [place] (1.001-1.035) Urine Protein (NEGATIVE) mg/dL Urine Glucose (UA) (NEGATIVE) mg/dL Urine Ketones (NEGATIVE) mg/dL Urine Occult Blood (NEGATIVE) Urine Nitrite (NEGATIVE) Urine Bilirubin (NEGATIVE) Urine Urobilinogen (<2.0) EU/dL Ur Leukocyte Esterase (NEGATIVE) Urine RBC (0-2/HPF) Urine WBC (0-5/HPF) Ur Epithelial Cells (NONE-FEW) Urine Bacteria (NEGATIVE) 05/23/19 05/23/19 Range/Units 13:38 15:00 WBC (4.0-11.0) K/uL RBC (4.30-5.90) M/uL Hgb (12.0-16.0) g/dL Hct (36.0-46.0) % MCV (80.0-98.0) fL MCH (27.0-32.0) pg MCHC (31.0-37.0) g/dL RDW Std Deviation (28.0-62.0) fl RDW Coeff of Donita (11.0-15.0) % Plt Count (150-400) K/uL MPV (7.40-12.00) fL Neut % (Auto) (48.0-80.0) % Lymph % (Auto) (16.0-40.0) % [place] % (Auto) (0.0-15.0) % Eos % (Auto) (0.0-7.0) % Baso % (Auto) (0.0-1.5) % Neut # (Auto) (1.4-5.7) K/uL Lymph # (Auto) (0.6-2.4) K/uL [place] # (Auto) (0.0-0.8) K/uL Eos # (Auto) (0.0-0.7) K/uL Baso # (Auto) (0.0-0.1) K/uL Lactate (0.20-2.00) mmol/L Sodium (136-145) mmol/L Potassium (3.5-5.1) mmol/L Chloride (98-107) mmol/L Carbon Dioxide (21.0-32.0) mmol/L BUN (7.0-18.0) mg/dL Creatinine (0.6-1.0) mg/dL Est Cr Clr Drug Dosing mL/min Estimated GFR (MDRD) ml/min Glucose (74-106) mg/dL Calcium (8.5-10.1) mg/dL Total Bilirubin (0.2-1.0) mg/dL AST (15-37) IU/L ALT (14-63) IU/L Alkaline Phosphatase (46-116) U/L Total Protein (6.4-8.2) g/dL Albumin (3.4-5.0) g/dL Globulin (2.6-4.0) g/dL Albumin/Globulin Ratio (0.9-1.6) Lipase (73-393) U/L HCG, Qual NEGATIVE (NEG) Urine Color YELLOW Urine Appearance SLT CLOUDY Urine pH 8.0 (5.0-8.0) Ur Specific [place] <= 1.005 (1.001-1.035) Urine Protein NEGATIVE (NEGATIVE) mg/dL Urine Glucose (UA) NEGATIVE (NEGATIVE) mg/dL Urine Ketones NEGATIVE (NEGATIVE) mg/dL Urine Occult Blood MODERATE H (NEGATIVE) Urine Nitrite NEGATIVE (NEGATIVE) Urine Bilirubin NEGATIVE (NEGATIVE) Urine Urobilinogen 1.0 (<2.0) EU/dL Ur Leukocyte Esterase SMALL H (NEGATIVE) Urine RBC 0-2 (0-2/HPF) Urine WBC 0-3 (0-5/HPF) Ur Epithelial Cells MODERATE (NONE-FEW) Urine Bacteria 1+ H (NEGATIVE) Meds: Medications Generic Name Dose Route Start Last Admin Trade Name Freq PRN Reason Stop Dose Admin Sodium Chloride 1,000 mls @ 125 mls/hr 05/23/19 16:15 05/23/19 16:36 Normal Saline IV 125 mls/hr ASDIRECTED CHAPARRITA Administration Discontinued Medications Generic Name Dose Route Start Last Admin Trade Name Freq PRN Reason Stop Dose Admin Sodium Chloride 1,000 mls @ 999 mls/hr 05/23/19 13:08 05/23/19 13:35 Normal Saline IV 05/23/19 14:08 999 mls/hr BOLUS ONE Administration Iopamidol 100 ml 05/23/19 14:51 05/23/19 14:51 Isovue Multipack-370 (76%) IVPUSH 05/23/19 14:52 100 ml ONETIME ONE Administration Morphine Sulfate 2 mg 05/23/19 13:08 05/23/19 13:36 Morphine IVPUSH 05/23/19 13:09 2 mg ONETIME ONE Administration Ondansetron HCl 4 mg 05/23/19 13:08 05/23/19 13:35 Zofran IVPUSH 05/23/19 13:09 4 mg ONETIME ONE Administration Departure - Departure Time of Disposition: 17:03 Disposition: DC/Tfer to Acute Hospital 02 Clinical Impression: Common bile duct stone Post-op bleeding Qualifiers: Surgical complication system/body Area: digestive system Procedure type: digestive system Qualified Code(s): K91.840 - Postprocedural hemorrhage of a digestive system organ or structure following a digestive system procedure - Discharge Information - My Orders Last 24 Hours: My Active Orders 05/23/19 13:33 Blood Culture x2 Reflex Set [OM.PC] Stat 05/23/19 14:03 CULTURE BLOOD [BC] Stat 05/23/19 14:18 CULTURE BLOOD [BC] Stat 05/23/19 15:00 CULTURE URINE [RM] Stat 05/23/19 16:15 Sodium Chloride 0.9% [Normal Saline] 1,000 ml IV ASDIRECTED - Assessment/Plan Last 24 Hours: My Active Orders 05/23/19 13:33 Blood Culture x2 Reflex Set [OM.PC] Stat 05/23/19 14:03 CULTURE BLOOD [BC] Stat 05/23/19 14:18 CULTURE BLOOD [BC] Stat 05/23/19 15:00 CULTURE URINE [RM] Stat 05/23/19 16:15 Sodium Chloride 0.9% [Normal Saline] 1,000 ml IV ASDIRECTED
[2019-05-23 14:33] LABS: BLOOD UREA NITROGEN,BUN 9 mg/dL (7.0-18.0); CARBON DIOXIDE,CO2 24.9 mmol/L (21.0-32.0); CHLORIDE,CL 105 mmol/L (98-107); GLUCOSE RANDOM 105 mg/dL (74-106); LIPASE 71 U/L (73-393); POTASSIUM,K 3.5 mmol/L (3.5-5.1); SODIUM,NA 141 mmol/L (136-145)
[2019-05-23] MEDS ORDERED: Iopamidol 755 MG/ML 200 ML Multipack Bottle IVPUSH ONE (14:51)
--- NOTE | 2019-05-23 15:20 | CT ---
Indication: Lower abdominal pain since 1 am this morning. Six days post- op cholecystectomy. Technique: Contrast-enhanced CT abdomen pelvis: Sagittal reformatted images obtained Comparison: No comparison studies are available Findings: Heart size is normal. Basilar atelectasis. No pericardial effusion. No pleural effusion. Pancreas, adrenal glands are unremarkable. Symmetric enhancement both kidneys appear normal caliber abdominal aorta. Mild enlargement of the spleen measuring 14 cm. Right percutaneous catheter with the tip in the hepatorenal fossa. Cholecystectomy with gas and fluid in the cholecystectomy bed. Free intraperitoneal air. There is moderate dense intra-abdominal fluid and also dense fluid in the pelvis reflecting blood. There is rounded hyperdense collection inferior to the gallbladder fossa seen on coronal image 35 and axial image 67 this could represent the sentinel clot. There is a 4 millimeter density in the distal common bile duct this is seen on series 203, image 50 and axial image 65 which could represent a stone. Air in the urinary bladder which is otherwise unremarkable. The bowel appears unremarkable without obstruction. Postoperative changes of right abdominal wall with small amount of gas and fluid within the subcutaneous soft tissues and within the abdominal wall. No suspicious bony lesions. Impression: 1. Postop changes of cholecystectomy with gas fluid and heterogeneous material in the gallbladder fossa. Percutaneous bright abdominal catheter with tip in the hepatorenal fossa. Moderate amount of dense fluid in the abdomen and pelvis reflecting hemorrhage. Probable sentinel clot just inferior to the gallbladder fossa. 2. Small amount of pneumoperitoneum. 3. 4 millimeter density in the distal common bile duct may represent a stone. Results called to Dr. Wilson on 05/23/2019 at 3:15 p.m. Please note that all CT scans at this facility use dose modulation, iterative reconstruction, and/or weight-based dosing when appropriate to reduce radiation dose to as low as reasonably achievable. Dictated by Carmelita Allen MD @ May 23 2019 2:59PM Signed by Dr. Carmelita Allen @ May 23 2019 3:17PM
[2019-05-23] MEDS ORDERED: Sodium Chloride 0.9% 1,000 ML IV SCH (16:15)
[2019-05-23 16:40] VITALS: BP 109/61; PULSE 87
== END 2019-05-23 16:40 ==
LOC: MW.ED 12:29
DX: K91.840 Postprocedural hemorrhage of a digestive system organ or structure following a digestive system procedure (principal); K80.50 Calculus of bile duct without cholangitis or cholecystitis without obstruction; E66.9 Obesity, unspecified; Z90.49 Acquired absence of other specified parts of digestive tract
CPT/HCPCS: 36415; 74177; 80053; 81001; 83605; 83690; 84703; 85025; 87040; 87086; 96361; 96374; 96375; 99285; J2270; J2405; J7040; Q9967; 99284

== ENCOUNTER 2021-07-18 17:40 | Emergency (ER) | payer MEDICAID ==
--- NOTE | 2021-07-18 18:09 | EDM.PDOC ---
ED HPI GENERAL MEDICAL PROBLEM - General Chief Complaint: Chest Pain Stated Complaint: chest pain Time Seen by Provider: 07/18/21 17:44 Source of Information: Reports: Patient History Limitations: Reports: No Limitations - History of Present Illness INITIAL COMMENTS - FREE TEXT/NARRATIVE: HISTORY AND PHYSICAL: History of present illness: Patient is a 26-year-old female who presents to the emergency room with complaints of chest pain over the past few days. She states she noticed a small lump to the right anterior chest a few days ago, and it has grown in size to about the size of a pea. She states is very tender to touch, is causing "chest pressure" and giving her increased anxiety. She has made multiple attempts to be seen in the clinic and is not able to get an appointment for over a month. Patient denies any fever, chills, headache, change in vision, syncope or near syncope. Denies any chest pain, back pain, shortness of breath or cough. Denies any GI or symptoms. Patient has been eating and drinking appropriately. No recent travel or sick contacts. Review of systems: As per history of present illness and below otherwise all systems reviewed and negative. Past medical history: As per history of present illness and as reviewed below otherwise noncontributory. Surgical history: As per history of present illness and as reviewed below otherwise no ncontributory. Social history: See social history for further information Family history: As per history of present illness and as reviewed below otherwise noncontributory. Physical exam: General: Well developed and well nourished. Alert and orientated x 3. Nontoxic in appearance and in no acute distress. Vital signs are stable and have been reviewed by me. Nursing notes were reviewed. HEENT: Atraumatic, normocephalic, pupils equal and reactive bilaterally, negative for conjunctival pallor or scleral icterus, mucous membranes moist, TMs normal bilaterally, throat clear, neck supple, nontender, trachea midline. No drooling or trismus noted. No meningeal signs. No hot potato voice noted. Lungs: Clear to auscultation bilaterally. No wheezes, rales, or rhonchi. Chest nontender. Normal work of breathing, no accessory muscles used. Heart: S1S2, regular rate and rhythm without overt murmur, gallops, or rubs. No JVD. No peripheral edema Abdomen: Soft, nondistended, nontender. Normoactive bowel sounds. Negative for masses or costovertebral tenderness. Skin: 7 mm mobile lipoma noted to the right anterior chest, no surrounding erythema or fluctuance. Remaining skin is intact, warm, dry. No lesions or rashes noted. Hematologic: No petechiae or purpra. Mucosa appropriate color and normal nail bed color and refill. Extremities: Atraumatic, moves all extremities per self without difficulty or deficits, negative for cords or calf pain. Neurovascular unremarkable. Neuro: Awake, alert, oriented. Cranial nerves II through XII unremarkable. Cerebellum unremarkable. Motor and sensory unremarkable throughout. Exam nonfocal. Psychiatric: Mood and affect are appropriate. Normal thought process. Answering questions appropriately. Please note that the patient was seen and evaluated during the 2019 SARS-CoV-2 novel coronavirus pandemic period. Community viral transmission is ongoing at time of this encounter and the emergency department is operating under pandemic response procedures. Medical Decision Making: Patient is a 26-year-old female who presents to the emergency room with complaints of chest pressure. She has had the symptoms for few days and associated with a small lump she notes above her right breast. Feels like an enlarged lymph node or lipoma. We will do cardiac work-up. Blood work is unremarkable. Patient did test positive for COVID-19. She asked if I would remove the "lump". In the case that this is an enlarged lymph node I would like her to wait until she feels improved and she can follow-up with dermatology. I have talked with the patient about today's findings, in addition to providing specific details for plan of care. Reassessment at the time of disposition demonstrates that the patient is in no acute distress. The patient is stable for discharge, counseling was provided and we discussed in great detail signs and symptoms that would prompt them to return to the Emergency Department. Medication, follow up and supportive care measures were reviewed and discussed. Voices understanding and is agreeable to plan of care. Denies any further questions or concerns at this time. Diagnostics: CBC, CMP, EKG, chest x-ray, COVID-19 Therapeutics: None Prescription: None Impression: COVID-19 Plan: 1. Your COVID-19 screening is positive. That means you do have the coronavirus and you are considered contagious. Your vital signs and oxygen saturation are well enough that you were able to monitor your symptoms at home. Continue to monitor for trouble breathing, new confusion or inability to arouse, bluish lips or face or any of the other symptoms we discussed -if this occurs please return to the emergency room immediately. 2. Please self quarantine until cleared by [facility]. Inform any persons that you have been in contact with since you started becoming symptomatic that you have tested positive; they should be made aware and take the appropriate steps as needed. 3. You can take NyQuil during the evening to help get a restful night sleep. May alternate Tylenol and ibuprofen as needed for pain and fever management. 4. The [facility] department will be calling you and following up with you. The [facility] Hotline phone number , They are open Friday - Friday 7am - 7pm. Follow up with your primary care provider for re-evaluation as directed. Definitive disposition and diagnosis as appropriate pending reevaluation and review of above. Right Upper Chest Pain Score (Numeric/FACES): 5 - Related Data Allergies Allergy/AdvReac Type Severity Reaction Status Date / Time No Known Allergies Allergy Verified 07/18/21 17:43 Past Medical History - Past Health History Medical/Surgical History: Denies Medical/Surgical History HEENT History: Reports: None Cardiovascular History: Reports: None Respiratory History: Reports: None Gastrointestinal History: Reports: Other (See Below) Other Gastrointestinal History: patient states "I have gall bladder pains and will probably have it removed after " Genitourinary History: Reports: None [employer]ANT History: Reports: Other [employer] CONS[employer]ANT History: LMP 07/10/2018. EDC 04/14/2019 Musculoskeletal History: Reports: None Neurological History: Reports: Migraines Psychiatric History: Reports: None Endocrine/Metabolic History: Reports: Diabetes, Gestational, Obesity/BMI 30+, Other (See Below) Other Endocrine/Metabolic History: Patient stated she has no more gestational diabetes Hematologic History: Reports: None Immunologic History: Reports: None Oncologic (Cancer) History: Reports: None Dermatologic History: Reports: None - Infectious Disease History Infectious Disease History: Reports: None - Past Surgical History Head Surgeries/Procedures: Reports: None Cardiovascular Surgical History: Reports: None Respiratory Surgical History: Reports: None GI Surgical History: Reports: Cholecystectomy Endocrine Surgical History: Reports: None Musculoskeletal Surgical History: Reports: Other (See Below) Other Musculoskeletal Surgeries/Procedures:: cyst removal on left leg (calf) Oncologic Surgical History: Reports: None Social & Family History - Family History Family Medical History: No Pertinent Family History : Reports: Renal Calculus OBGYN: Reports: Neurological: Reports: CVA Endocrine/Metabolic: Reports: Diabetes, Type I, Diabetes, type II - Tobacco Use Tobacco Use Status *Q: Current Every Day Tobacco User Years of Tobacco use: 5 Packs/Tins Daily: 0.2 - Caffeine Use Caffeine Use: Reports: Soda, Tea - Alcohol Use Days Per Week of Alcohol Use: 1 Number of Drinks Per Day: 2 Total Drinks Per Week: 2 - Recreational Drug Use Recreational Drug Use: No ED ROS GENERAL - Review of Systems Review Of Systems: Comprehensive ROS is negative, except as noted in HPI. ED EXAM, GENERAL - Physical Exam Exam: See Below (See dictation) Course - Vital Signs Last Recorded V/S: Last Vital Signs Temp 97.5 F 07/18/21 19:15 Pulse 88 07/18/21 19:15 Resp 20 07/18/21 19:15 BP 124/70 07/18/21 19:15 Pulse Ox 98 07/18/21 19:15 - Orders/Labs/Meds Labs: Laboratory Tests 07/18/21 07/18/21 07/18/21 Range/Units 17:51 18:03 18:03 WBC 10.51 (4.0-11.0) K/uL RBC 5.03 (4.30-5.90) M/uL Hgb 14.0 (12.0-16.0) g/dL Hct 42.5 (36.0-46.0) % MCV 84.5 (80.0-98.0) fL MCH 27.8 (27.0-32.0) pg MCHC 32.9 (31.0-37.0) g/dL RDW Std Deviation 38.8 (28.0-62.0) fl RDW Coeff of Donita 13 (11.0-15.0) % Plt Count 355 (150-400) K/uL MPV 8.80 (7.40-12.00) fL Neut % (Auto) 59.4 (48.0-80.0) % Lymph % (Auto) 32.1 (16.0-40.0) % Iron % (Auto) 7.8 (0.0-15.0) % Eos % (Auto) 0.4 (0.0-7.0) % Baso % (Auto) 0.3 (0.0-1.5) % Neut # (Auto) 6.3 H (1.4-5.7) K/uL Lymph # (Auto) 3.4 H (0.6-2.4) K/uL Iron # (Auto) 0.8 (0.0-0.8) K/uL Eos # (Auto) 0.0 (0.0-0.7) K/uL Baso # (Auto) 0.0 (0.0-0.1) K/uL Nucleated RBC % 0.0 /100WBC Nucleated RBCs # 0 K/uL Sodium 140 (136-145) mmol/L Potassium 4.0 (3.5-5.1) mmol/L Chloride 103 (98-107) mmol/L Carbon Dioxide 28.3 (21.0-32.0) mmol/L BUN 10 (7.0-18.0) mg/dL Creatinine 0.7 (0.6-1.0) mg/dL Est Cr Clr Drug Dosing 113.01 mL/min Estimated GFR (MDRD) > 60.0 ml/min Glucose 96 (74-106) mg/dL Calcium 8.7 (8.5-10.1) mg/dL Total Bilirubin 0.3 (0.2-1.0) mg/dL AST 27 (15-37) IU/L ALT 61 (14-63) IU/L Alkaline Phosphatase 97 (46-116) U/L Total Protein 7.9 (6.4-8.2) g/dL Albumin 3.7 (3.4-5.0) g/dL Globulin 4.2 H (2.6-4.0) g/dL Albumin/Globulin Ratio 0.9 (0.9-1.6) SARS-CoV-2 RNA (ISAIAH) POSITIVE H (NEGATIVE) Meds: Medications Discontinued Medications Generic Name Dose Route Start Last Admin Trade Name Freq PRN Reason Stop Dose Admin Bacitracin 1 dose 07/18/21 18:16 07/18/21 18:24 Bacitracin Oint 1 Gm U/D Packet TOP 07/18/21 18:17 1 dose ONETIME ONE Administration Lidocaine HCl 2 ml 07/18/21 18:16 07/18/21 18:24 Lidocaine 1% Pf 2 Ml Sdv INJECT 07/18/21 18:17 2 ml ONETIME ONE Administration Departure - Departure Time of Disposition: 19:07 Disposition: Home, Self-Care 01 Clinical Impression: COVID-19 Instructions: 10 Things You Can Do to Manage Your COVID-19 Symptoms at Home - [facility] (04/27/2021) Referrals: PCP,None [Primary Care Provider] - Forms: ED Department Discharge Additional Instructions: The following information is given to patients seen in the emergency department who are being discharged to home. This information is to outline your options for follow-up care. We provide all patients seen in our emergency department with a follow-up referral. The need for follow-up, as well as the timing and circumstances, are variable depending upon the specifics of your emergency department visit. If you don't have a primary care physician on staff, we will provide you with a referral. We always advise you to contact your personal physician following an emergency department visit to inform them of the circumstance of the visit and for follow-up with them and/or the need for any referrals to a consulting specialist. The emergency department will also refer you to a specialist when appropriate. This referral assures that you have the opportunity for follow-up care with a specialist. All of these measure are taken in an effort to provide you with optimal care, which includes your follow-up. Under all circumstances we always encourage you to contact your private physician who remains a resource for coordinating your care. When calling for follow-up care, please make the office aware that this follow-up is from your recent emergency room visit. If for any reason you are refused follow-up, please contact the [facility] Emergency Department at and asked to speak to the emergency department charge nurse. [facility] [address] [place] [id number] [facility] [address] [place] [id number] Thank you for choosing the [facility] emergency department in [place] for your medical needs today. It was a pleasure caring for you. Today you were seen in the emergency department for COVID-19. 1. Your COVID-19 screening is positive. That means you do have the coronavirus and you are considered contagious. Your vital signs and oxygen saturation are well enough that you were able to monitor your symptoms at home. Continue to monitor for trouble breathing, new confusion or inability to arouse, bluish lips or face or any of the other symptoms we discussed -if this occurs please return to the emergency room immediately. 2. Please self quarantine until cleared by [facility] Department. Inform any persons that you have been in contact with since you started becoming symptomatic that you have tested positive; they should be made aware and take the appropriate steps as needed. 3. You can take NyQuil during the evening to help get a restful night sleep. May alternate Tylenol and ibuprofen as needed for pain and fever management. 4. The [facility] department will be calling you and following up with you. The [place] COVID 19 Hotline phone number , They are open Friday - Friday 7am - 7pm. Follow up with your primary care provider for re-evaluation as directed. Sepsis Event Note (ED) - Focused Exam Vital Signs: Vital Signs Temp Pulse Resp BP Pulse Ox 07/18/21 19:15 97.5 F 88 20 124/70 98 07/18/21 17:44 16
[2021-07-18] MEDS ORDERED: Bacitracin Oint 1 GM U/D Packet TOP ONE (18:16)
[2021-07-18] MEDS ORDERED: Lidocaine 1% PF 2 ML SDV INJECT ONE (18:16)
--- NOTE | 2021-07-18 18:23 | PCM.EKG ---
#1 Interpretation EKG Interpretation Comments: Heart rate = 88 bpm, normal sinus rhythm, normal QRS interval, no STEMI. EKG and rhythm strip interpreted by me at [id number]
[2021-07-18 18:50] LABS: BLOOD UREA NITROGEN,BUN 10 mg/dL (7.0-18.0); CARBON DIOXIDE,CO2 28.3 mmol/L (21.0-32.0); CHLORIDE,CL 103 mmol/L (98-107); GLUCOSE RANDOM 96 mg/dL (74-106); SODIUM,NA 140 mmol/L (136-145)
--- NOTE | 2021-07-18 18:58 | CR ---
INDICATION: Chest pain TECHNIQUE: Chest radiograph 1 view COMPARISON: None FINDINGS: The sensitivity and specificity of the exam are moderately limited by the patient`s body habitus. Mediastinum: The mediastinum is normal in appearance. The heart silhouette is normal in size and morphology. Lung: Both lungs are unremarkable in appearance. No sign of pleural effusion seen. No pneumothorax is identified. Bone and Soft tissue: Unremarkable for age. IMPRESSION: 1. No acute cardiopulmonary disease is seen. Dictated by: Yovani Griffiths MD @ 07/18/2021 18:57:32 (Electronically Signed)
[2021-07-18 19:16] VITALS: BP 124/70; PULSE 88
== END 2021-07-18 19:16 | disposition home or self-care (01) ==
LOC: MW.ED 17:40
DX: U07.1 COVID-19 (principal); E66.9 Obesity, unspecified; Z68.32 Body mass index [BMI] 32.0-32.9, adult; Z72.0 Tobacco use
CPT/HCPCS: 36415; 71045; 71045-26; 80053; 85025; 93005; 99285-25; U0002